=== PATIENT | male | born 1940 | race Two or more races ===

== ENCOUNTER 2016-12-12 06:45 | Inpatient (IN) | payer MEDICARE, BC ==
[~2016-12-12] VITALS: Ht 170.2 cm; Wt 69.9 kg
[2016-12-12] VITALS (22 sets, daily range): BP systolic 98–157; BP diastolic 63–97
[2016-12-12] MEDS ORDERED: NALOXONE PREFILLED SYRINGE 2 MG/2 ML SYRINGE ONE (06:50)
[2016-12-12] MEDS ORDERED: IV NS 0.9% 1,000 ML ONE (06:54)
[2016-12-12] MEDS ORDERED: IV SET PRIMARY PUMP SET 1 EA INFUS.SET MC ONE ×4 (06:54→10:41)
[2016-12-12] MEDS ORDERED: PROPOFOL 100 ML IV ONE (06:54)
[2016-12-12] MEDS ORDERED: IPRATROPIUM NEB FS 0.5 MG/2.5 ML AMPUL.NEB ONE (06:55)
[2016-12-12] MEDS ORDERED: ALBUTEROL FS 2.5 MG/3 ML VIAL.NEB ONE ×2 (06:55→07:18)
[2016-12-12] MEDS ORDERED: methylPREDNISolone SOD SUCC 125 MG/2ML VIAL ONE (06:56)
[2016-12-12] MEDS ORDERED: Magnesium 1GM/D5W 100ML PREMIX 100 ML IV SCH (07:00)
[2016-12-12] MEDS ORDERED: ALBUTEROL FS 2.5 MG/0.5 ML VIAL.NEB NEB ONE ×2 (07:00→07:30)
[2016-12-12] MEDS ORDERED: methylPREDNISolone SOD SUCC 125 MG/2ML VIAL IV ONE (07:00)
[2016-12-12] MEDS ORDERED: NALOXONE HCL 0.4 MG/ML AMPUL IV ONE (07:00)
[2016-12-12] MEDS ORDERED: IPRATROPIUM NEB FS 0.5 MG/2.5 ML AMPUL.NEB NEB ONE (07:00)
[2016-12-12] MEDS ORDERED: Magnesium 1GM/D5W 100ML PREMIX 200 ML IV ONE (07:07)
[2016-12-12 07:22] LABS: BASOPHILS # (AUTO) 0.2 /CMM (0.0-0.2); BASOPHILS % (AUTO) 2.2 % (0.0-2.0); DIFF TOTAL % 100 %; EOSINOPHILS % (AUTO) 0.1 % (0.0-6.0); HEMATOCRIT 52 % (39-51); HEMOGLOBIN 17.3 g/dL (13.5-17.5); LYMPHOCYTES # (AUTO) 0.7 /CMM (0.8-4.8); LYMPHOCYTES % (AUTO) 6.1 % (20.0-44.0); MEAN CORPUSCULAR HEMOGLOBIN 34 PG (26.0-33.0); MEAN CORPUSCULAR HGB CONC 33 g/dl (31.0-36.0); MEAN CORPUSCULAR VOLUME 103 fL (80-96); MONOCYTES # (AUTO) 1.1 /CMM (0.1-1.30); NEUTROPHILS # (AUTO) 9.1 /CMM (1.8-8.9); NEUTROPHILS % (AUTO) 81.6 % (43.0-81.0); PLATELET COUNT (AUTO) 160 /CMM (150-450); RED BLOOD CELL COUNT(AUTO) 5.07 MIL/uL (4.5-6.0); WHITE BLOOD COUNT (AUTO) 11.1 K/uL (4.3-11.0)
[2016-12-12] MEDS ORDERED: PROPOFOL 100 ML IV PRN (07:30)
[2016-12-12] MEDS ORDERED: SUCCINYLCHOLINE CHLORIDE 20 MG/ML VIAL IV ONE ×3 (07:30→13:00)
[2016-12-12] MEDS ORDERED: TERBUTALINE SULFATE 1 MG/ML VIAL SQ ONE (07:30)
[2016-12-12] MEDS ORDERED: IV NS 0.9% 1,000 ML BAG IV ONE (07:30)
[2016-12-12] MEDS ORDERED: ETOMIDATE 2 MG/ML VIAL IV ONE ×3 (07:30→13:00)
[2016-12-12] MEDS ORDERED: FENTANYL CITRATE IV 1,250 MCG in IV NS 0.9% 225 ML IV STA (07:32)
[2016-12-12 07:35] LABS: ANION GAP 10 (5-14); CALCIUM, SERUM 9.5 mg/dL (8.5-10.1); CARBON DIOXIDE 35 mmol/L (21-32); CHLORIDE 100 mmol/L (98-107); CREATININE 1.9 mg/dL (0.6-1.3); GLUCOSE 127 mg/dL (74-106); POTASSIUM 5.4 mmol/L (3.5-5.1); SODIUM SERUM 140 mmol/L (136-145); UREA NITROGEN, BLOOD 34 mg/dL (7-18)
[2016-12-12 07:36] LABS: INR 1.05 (0.87-1.13)
[2016-12-12 07:44] LABS: TROPONIN I 0.176 ng/mL (0.00-0.056)
[2016-12-12 07:52] LABS: ALANINE AMINOTRANSFERASE 46 U/L (12-78); ALBUMIN 3.6 g/dL (3.4-5.0); ASPARTATE AMINOTRANSFERASE 51 U/L (15-37); BILIRUBIN,DIRECT 0.4 mg/dL (0.0-0.2); BILIRUBIN,TOTAL 1.4 mg/dL (0.2-1.0); TOTAL PROTEIN, SERUM 7.8 g/dL (6.4-8.2)
[2016-12-12] MEDS ORDERED: TERBUTALINE SULFATE 1 MG/ML VIAL ONE (07:55)
[2016-12-12] MEDS ORDERED: FENTANYL PF 100MCG/2ML AMPUL IV ONE (08:00)
[2016-12-12] MEDS ORDERED: FENTANYL PF 100MCG/2ML AMPUL ONE (08:13)
[2016-12-12] MEDS ORDERED: SET PCA INFUSE SET 1 EA INFUS.SET MC ONE (08:15)
[2016-12-12 08:18] LABS: *LACTIC ACID REFLEX FLAG YES
[2016-12-12 08:29] LABS: KETONES,URINE Negative (NEGATIVE); LEUKOCYTE ESTERASE ,URINE Negative (NEGATIVE)
[2016-12-12] MEDS ORDERED: ASPIRIN 300 MG/SUPP.RECT RC ONE ×2 (08:30→09:50)
[2016-12-12 08:31] LABS: ADD UA MICROSCOPIC YES
[2016-12-12 08:45] LABS: ADD URINE CULTURE YES; RBC,URINE 0-2 /HPF (0-2); WBC,URINE NONE SEEN /HPF (0-3)
[2016-12-12] MEDS ORDERED: LEVOFLOXACIN 750 MG /D5W 150ML 150 ML IV ONE (08:48)
[2016-12-12] MEDS ORDERED: LEVOFLOXACIN 750 MG /D5W 150ML PIGGYBACK IV ONE (09:00)
[2016-12-12] MEDS ORDERED: IV NS 0.9% 1,000 ML IV PRN (09:10)
[2016-12-12] MEDS ORDERED: MAGNESIUM HYDROXIDE 30 ML UDC PO PRN (09:30)
[2016-12-12] MEDS ORDERED: ONDANSETRON HCL/PF 4 MG/2 ML VIAL IVP PRN (09:30)
[2016-12-12] MEDS ORDERED: MAG HYDROX/AL HYDROX/SIMETH 30 ML UDC PO PRN (09:30)
[2016-12-12] MEDS ORDERED: DEXTROSE 50%-WATER 50 ML DISP.SYRIN IV PRN (09:30)
[2016-12-12 09:39] LABS: BAND % (MANUAL) 9 % (0.0-5.0); LYMPHOCYTES % (MANUAL) 7 % (16-48)
[2016-12-12 09:40] LABS: PLATELET ESTIMATE ADEQUATE
[2016-12-12 09:51] LABS: ABG BASE EXCESS 3.8 mmol/L; ABG HCO3 40.3 mmol/L; ABG PCO2 139.2 mmHg (35.0-45.0); ABG PH 7.079 (7.350-7.450); ABG PO2 75.9 mmHg (75.0-100.0); ABG TOTAL HEMOGLOBIN 17.4 G/dL (13.5-18.0); ALLEN TEST Pass; O2Hb 87.8 % (94.0-97.0)
[2016-12-12 09:56] LABS: ABG BASE EXCESS 4.5 mmol/L; ABG HCO3 30.6 mmol/L; ABG PCO2 50.6 mmHg (35.0-45.0); ABG PH 7.399 (7.350-7.450); ABG PO2 158.9 mmHg (75.0-100.0); ABG TOTAL HEMOGLOBIN 15.9 G/dL (13.5-18.0); ALLEN TEST Pass; AaDO2 503.5 mmHg; O2Hb 96.8 % (94.0-97.0)
[2016-12-12] MEDS: PANTOPRAZOLE 40 MG VIAL IV SCH (10:50)
[2016-12-12] MEDS: IV NS 0.9% 1,000 ML IV PRN ×2 (10:51→18:56)
[2016-12-12] MEDS: ENOXAPARIN SODIUM 40 MG/0.4 ML DISP.SYRIN SQ SCH (10:54)
[2016-12-12] MEDS: IPRATROPIUM NEB FS 0.5 MG/2.5 ML AMPUL.NEB NEB SCH ×4 (11:22→23:24)
[2016-12-12] MEDS: BLOOD SUGAR DIAGNOSTIC 1 EACH STRIP VI SCH ×3 (12:20→22:23)
[2016-12-12] MEDS: methylPREDNISolone SOD SUCC 125 MG/2ML VIAL IV SCH ×2 (12:21→17:25)
[2016-12-12] MEDS: INSULIN REGULAR, HUMAN 100 UNIT/ML 3 ML VIAL SQ PRN ×2 (12:27→17:31)
[2016-12-12] MEDS: PROPOFOL 100 ML IV PRN ×2 (12:42→19:27)
[2016-12-12] MEDS ORDERED: ALBUTEROL HALF STRENGTH 1.25 MG/3 ML VIAL.NEB NEB SCH (13:00)
[2016-12-12] MEDS ORDERED: FENTANYL CITRATE IV 1,250 MCG in IV NS 0.9% 225 ML IV PRN (13:00)
[2016-12-12] MEDS: ALBUTEROL HALF STRENGTH 1.25 MG/3 ML VIAL.NEB NEB SCH ×3 (15:15→23:24)
[2016-12-12] MEDS ORDERED: ZOLPIDEM TARTRATE 5 MG TABLET PO PRN (22:00)
[2016-12-12] MEDS: MORPHINE SULFATE INJ 2 MG/ML DISP.SYRIN IV PRN (23:39)
[2016-12-13] VITALS (37 sets, daily range): BP systolic 108–173; BP diastolic 70–123
[2016-12-13] MEDS ORDERED: hydrALAZINE HCL IV 20 MG VIAL ONE (00:43)
[2016-12-13] MEDS: hydrALAZINE HCL IV 20 MG VIAL IV PRN (00:46)
[2016-12-13] MEDS: PROPOFOL 100 ML IV PRN ×5 (00:53→19:21)
[2016-12-13] MEDS: IV NS 0.9% 1,000 ML IV PRN ×3 (02:47→22:13)
[2016-12-13] MEDS: ALBUTEROL HALF STRENGTH 1.25 MG/3 ML VIAL.NEB NEB SCH ×6 (03:12→23:43)
[2016-12-13] MEDS: IPRATROPIUM NEB FS 0.5 MG/2.5 ML AMPUL.NEB NEB SCH ×6 (03:12→23:43)
[2016-12-13 04:56] LABS: DIFF TOTAL % 100 %; HEMATOCRIT 43 % (39-51); HEMOGLOBIN 14.3 g/dL (13.5-17.5); LYMPHOCYTES # (AUTO) 0.2 /CMM (0.8-4.8); MEAN CORPUSCULAR HEMOGLOBIN 34 PG (26.0-33.0); MEAN CORPUSCULAR HGB CONC 33 g/dl (31.0-36.0); MEAN CORPUSCULAR VOLUME 102 fL (80-96); MONOCYTES # (AUTO) 0.4 /CMM (0.1-1.30); MONOCYTES % (AUTO) 3.8 % (2.0-12.0); NEUTROPHILS # (AUTO) 9.7 /CMM (1.8-8.9); NEUTROPHILS % (AUTO) 94.2 % (43.0-81.0); PLATELET COUNT (AUTO) 171 /CMM (150-450); RED BLOOD CELL COUNT(AUTO) 4.24 MIL/uL (4.5-6.0); WHITE BLOOD COUNT (AUTO) 10.3 K/uL (4.3-11.0)
[2016-12-13 05:18] LABS: ALBUMIN 2.5 g/dL (3.4-5.0); BILIRUBIN,TOTAL 0.6 mg/dL (0.2-1.0); CREATININE 2.1 mg/dL (0.6-1.3); PHOSPHORUS 2.1 mg/dL (2.5-4.9); POTASSIUM 4.5 mmol/L (3.5-5.1); TOTAL PROTEIN, SERUM 5.9 g/dL (6.4-8.2)
[2016-12-13] MEDS: BLOOD SUGAR DIAGNOSTIC 1 EACH STRIP VI SCH ×4 (07:52→22:21)
[2016-12-13] MEDS: methylPREDNISolone SOD SUCC 125 MG/2ML VIAL IV SCH ×3 (08:18→16:34)
[2016-12-13] MEDS: PANTOPRAZOLE 40 MG VIAL IV SCH (08:18)
[2016-12-13 08:23] LABS: ABG BASE EXCESS 3.5 mmol/L; ABG HCO3 28.3 mmol/L; ABG PCO2 43.3 mmHg (35.0-45.0); ABG PH 7.433 (7.350-7.450); ABG PO2 71.6 mmHg (75.0-100.0); ABG TOTAL HEMOGLOBIN 14.9 G/dL (13.5-18.0); ALLEN TEST Pass; AaDO2 163.8 mmHg; O2Hb 93.3 % (94.0-97.0)
[2016-12-13] MEDS: ENOXAPARIN SODIUM 40 MG/0.4 ML DISP.SYRIN SQ SCH (08:52)
[2016-12-13] MEDS ORDERED: LEVOFLOXACIN 750 MG /D5W 150ML 750 MG in PREMIX 1 EA IV SCH ×3 (09:30→10:30)
[2016-12-13 10:41] LABS: CREATININE, URINE 175.3 MG/DL (30.0-125.0)
[2016-12-13] MEDS: INSULIN REGULAR, HUMAN 100 UNIT/ML 3 ML VIAL SQ PRN ×2 (12:01→16:33)
[2016-12-13] MEDS ORDERED: IV SET PRIMARY PUMP SET 1 EA INFUS.SET MC ONE (15:20)
[2016-12-13] MEDS ORDERED: Sodium Phosphate 7.5 MMOL in IV D5W 100 ML IV ONE (16:30)
[2016-12-13] MEDS: *INSULIN REGULAR(HUMULIN R)HUM 100 UNIT/ML VIAL SQ PRN (22:24)
[2016-12-14] VITALS (49 sets, daily range): BP systolic 100–173; BP diastolic 56–105
[2016-12-14] MEDS: PROPOFOL 100 ML IV PRN ×6 (00:14→20:56)
[2016-12-14] MEDS: IPRATROPIUM NEB FS 0.5 MG/2.5 ML AMPUL.NEB NEB SCH ×6 (03:54→23:06)
[2016-12-14] MEDS: ALBUTEROL HALF STRENGTH 1.25 MG/3 ML VIAL.NEB NEB SCH ×6 (03:54→23:05)
[2016-12-14] MEDS: hydrALAZINE HCL IV 20 MG VIAL IV PRN (04:02)
[2016-12-14 05:07] LABS: DIFF TOTAL % 100 %; EOSINOPHILS % (AUTO) 0.2 % (0.0-6.0); HEMATOCRIT 48 % (39-51); LYMPHOCYTES # (AUTO) 0.4 /CMM (0.8-4.8); LYMPHOCYTES % (AUTO) 2.9 % (20.0-44.0); MEAN CORPUSCULAR HEMOGLOBIN 34 PG (26.0-33.0); MEAN CORPUSCULAR HGB CONC 33 g/dl (31.0-36.0); MEAN CORPUSCULAR VOLUME 103 fL (80-96); MONOCYTES # (AUTO) 0.1 /CMM (0.1-1.30); MONOCYTES % (AUTO) 0.8 % (2.0-12.0); NEUTROPHILS # (AUTO) 13.2 /CMM (1.8-8.9); NEUTROPHILS % (AUTO) 96.1 % (43.0-81.0); PLATELET COUNT (AUTO) 188 /CMM (150-450); RED BLOOD CELL COUNT(AUTO) 4.68 MIL/uL (4.5-6.0); WHITE BLOOD COUNT (AUTO) 13.8 K/uL (4.3-11.0)
[2016-12-14 05:15] LABS: CALCIUM, SERUM 8.2 mg/dL (8.5-10.1); CREATININE 1.8 mg/dL (0.6-1.3); PHOSPHORUS 2.8 mg/dL (2.5-4.9); POTASSIUM 4.5 mmol/L (3.5-5.1)
[2016-12-14] MEDS: BLOOD SUGAR DIAGNOSTIC 1 EACH STRIP VI SCH ×4 (08:29→22:45)
[2016-12-14] MEDS: PANTOPRAZOLE 40 MG VIAL IV SCH (08:30)
[2016-12-14] MEDS: methylPREDNISolone SOD SUCC 125 MG/2ML VIAL IV SCH ×3 (08:30→17:44)
[2016-12-14] MEDS: IV NS 0.9% 1,000 ML IV PRN ×2 (08:30→17:44)
[2016-12-14] MEDS: ENOXAPARIN SODIUM 40 MG/0.4 ML DISP.SYRIN SQ SCH (08:31)
[2016-12-14] MEDS ORDERED: HYDROGEL DRESSING 90 GM TUBE TP PRN (09:30)
[2016-12-14] MEDS: HYDROGEL DRESSING 90 GM TUBE TP SCH (11:09)
[2016-12-14] MEDS ORDERED: IV SET PRIMARY PUMP SET 1 EA INFUS.SET MC ONE ×2 (13:17→20:37)
[2016-12-14] MEDS ORDERED: VANCOMYCIN 1 GM in IV D5W 250 ML IV SCH (15:00)
[2016-12-14] MEDS ORDERED: HYDR-548 PO (15:04)
[2016-12-14] MEDS ORDERED: ALBU18HF2 IH (15:04)
[2016-12-14] MEDS ORDERED: ALPR1TAB2 PO (15:04)
[2016-12-14] MEDS ORDERED: HYDR25TA4 PO (15:04)
[2016-12-14] MEDS ORDERED: BUDE10.2 IH (15:04)
[2016-12-14] MEDS ORDERED: TADA5TAB2 PO (15:04)
[2016-12-14] MEDS ORDERED: TIOT4MIS2 IH (15:04)
[2016-12-14] MEDS ORDERED: ALBU8.5H2 IH (15:04)
[2016-12-14] MEDS ORDERED: DEXT20TA6 PO (15:04)
[2016-12-14] MEDS ORDERED: FLUR30CA13 PO (15:04)
[2016-12-14] MEDS ORDERED: FEE PK DOSING 1 MIN EA MC ONE (16:08)
[2016-12-14] MEDS: VANCOMYCIN 0.75 GM in IV D5W 250 ML IV SCH (17:45)
[2016-12-14] MEDS: *INSULIN REGULAR(HUMULIN R)HUM 100 UNIT/ML VIAL SQ PRN ×2 (19:13→22:47)
[2016-12-14] MEDS ORDERED: SECONDARY IV SET 1 EA INFUS.SET MC ONE (21:10)
[2016-12-14] MEDS: PIPERACILLIN /TAZOBACTAM 2.25 G in IV D5W 50 ML IV SCH (22:48)
[2016-12-15] VITALS (54 sets, daily range): BP systolic 83–193; BP diastolic 54–99
[2016-12-15] MEDS: PROPOFOL 100 ML IV PRN ×5 (01:42→20:37)
[2016-12-15] MEDS: IPRATROPIUM NEB FS 0.5 MG/2.5 ML AMPUL.NEB NEB SCH ×6 (03:15→23:19)
[2016-12-15] MEDS: ALBUTEROL HALF STRENGTH 1.25 MG/3 ML VIAL.NEB NEB SCH ×6 (03:15→23:19)
[2016-12-15] MEDS: hydrALAZINE HCL IV 20 MG VIAL IV PRN (04:40)
[2016-12-15 05:26] LABS: CALCIUM, SERUM 7.6 mg/dL (8.5-10.1); CREATININE 1.6 mg/dL (0.6-1.3); POTASSIUM 4.8 mmol/L (3.5-5.1)
[2016-12-15 05:27] LABS: BASOPHILS % (AUTO) 0.3 % (0.0-2.0); DIFF TOTAL % 100 %; HEMATOCRIT 46 % (39-51); HEMOGLOBIN 15.3 g/dL (13.5-17.5); LYMPHOCYTES # (AUTO) 0.4 /CMM (0.8-4.8); LYMPHOCYTES % (AUTO) 4.1 % (20.0-44.0); MEAN CORPUSCULAR HEMOGLOBIN 34 PG (26.0-33.0); MEAN CORPUSCULAR HGB CONC 33 g/dl (31.0-36.0); MEAN CORPUSCULAR VOLUME 103 fL (80-96); MONOCYTES # (AUTO) 0.3 /CMM (0.1-1.30); MONOCYTES % (AUTO) 3.3 % (2.0-12.0); NEUTROPHILS # (AUTO) 9.6 /CMM (1.8-8.9); NEUTROPHILS % (AUTO) 92.3 % (43.0-81.0); PLATELET COUNT (AUTO) 167 /CMM (150-450); RED BLOOD CELL COUNT(AUTO) 4.49 MIL/uL (4.5-6.0); WHITE BLOOD COUNT (AUTO) 10.4 K/uL (4.3-11.0)
[2016-12-15] MEDS: PIPERACILLIN /TAZOBACTAM 2.25 G in IV D5W 50 ML IV SCH ×3 (05:49→17:44)
[2016-12-15] MEDS: BLOOD SUGAR DIAGNOSTIC 1 EACH STRIP VI SCH ×4 (08:19→21:15)
[2016-12-15] MEDS: PANTOPRAZOLE 40 MG VIAL IV SCH (08:20)
[2016-12-15] MEDS: methylPREDNISolone SOD SUCC 125 MG/2ML VIAL IV SCH ×2 (08:21→17:44)
[2016-12-15] MEDS: ENOXAPARIN SODIUM 40 MG/0.4 ML DISP.SYRIN SQ SCH (08:21)
[2016-12-15] MEDS: HYDROGEL DRESSING 90 GM TUBE TP SCH (08:22)
[2016-12-15] MEDS: Z GUARD REMEDY 2 OZ OINT TP PRN (08:22)
[2016-12-15] MEDS ORDERED: LEVOFLOXACIN 750 MG /D5W 150ML 750 MG in PREMIX 1 EA IV SCH (09:00)
[2016-12-15] MEDS ORDERED: IV SET PRIMARY PUMP SET 1 EA INFUS.SET MC ONE ×2 (09:27→20:42)
[2016-12-15] MEDS: VANCOMYCIN 0.75 GM in IV D5W 250 ML IV SCH (10:20)
[2016-12-15] MEDS: IV NS 0.9% 1,000 ML IV PRN (10:20)
[2016-12-15 11:44] LABS: ABG HCO3 26.7 mmol/L; ABG PCO2 67.9 mmHg (35.0-45.0); ABG PH 7.212 (7.350-7.450); ABG PO2 79.5 mmHg (75.0-100.0); ABG TOTAL HEMOGLOBIN 16.2 G/dL (13.5-18.0); ALLEN TEST Pass; AaDO2 127.6 mmHg; O2Hb 91.3 % (94.0-97.0)
[2016-12-15] MEDS: INSULIN REGULAR, HUMAN 100 UNIT/ML 3 ML VIAL SQ PRN (11:47)
[2016-12-15] MEDS: LORAZEPAM INJ 2 MG/ML VIAL IV PRN ×2 (12:01→20:37)
[2016-12-15 17:53] LABS: HIV-1 p24 ANTIGEN NON REACTIVE (NONREACTIVE); HIV-1/2 ANTIBODY NON REACTIVE (NONREACTIVE)
[2016-12-15] MEDS: *INSULIN REGULAR(HUMULIN R)HUM 100 UNIT/ML VIAL SQ PRN (21:15)
[2016-12-16] VITALS (50 sets, daily range): BP systolic 99–177; BP diastolic 7–98
[2016-12-16] MEDS: PIPERACILLIN /TAZOBACTAM 2.25 G in IV D5W 50 ML IV SCH ×5 (00:30→23:01)
[2016-12-16] MEDS: MORPHINE SULFATE INJ 2 MG/ML DISP.SYRIN IV PRN (01:36)
[2016-12-16] MEDS: PROPOFOL 100 ML IV PRN ×6 (01:37→22:58)
[2016-12-16] MEDS: IV NS 0.9% 1,000 ML IV PRN ×2 (01:38→16:27)
[2016-12-16] MEDS: ALBUTEROL HALF STRENGTH 1.25 MG/3 ML VIAL.NEB NEB SCH ×6 (03:24→22:47)
[2016-12-16] MEDS: IPRATROPIUM NEB FS 0.5 MG/2.5 ML AMPUL.NEB NEB SCH ×6 (03:24→22:47)
[2016-12-16] MEDS: LORAZEPAM INJ 2 MG/ML VIAL IV PRN (03:51)
[2016-12-16 05:03] LABS: BASOPHILS % (AUTO) 0.2 % (0.0-2.0); DIFF TOTAL % 100 %; EOSINOPHILS % (AUTO) 0.2 % (0.0-6.0); HEMATOCRIT 50 % (39-51); HEMOGLOBIN 15.7 g/dL (13.5-17.5); LYMPHOCYTES # (AUTO) 0.3 /CMM (0.8-4.8); LYMPHOCYTES % (AUTO) 4.1 % (20.0-44.0); MEAN CORPUSCULAR HEMOGLOBIN 33 PG (26.0-33.0); MEAN CORPUSCULAR HGB CONC 32 g/dl (31.0-36.0); MEAN CORPUSCULAR VOLUME 103 fL (80-96); MONOCYTES # (AUTO) 0.5 /CMM (0.1-1.30); MONOCYTES % (AUTO) 5.7 % (2.0-12.0); NEUTROPHILS # (AUTO) 7.3 /CMM (1.8-8.9); NEUTROPHILS % (AUTO) 89.8 % (43.0-81.0); PLATELET COUNT (AUTO) 172 /CMM (150-450); RED BLOOD CELL COUNT(AUTO) 4.81 MIL/uL (4.5-6.0); WHITE BLOOD COUNT (AUTO) 8.1 K/uL (4.3-11.0)
[2016-12-16 05:15] LABS: CALCIUM, SERUM 7.7 mg/dL (8.5-10.1); CREATININE 1.6 mg/dL (0.6-1.3); POTASSIUM 4.8 mmol/L (3.5-5.1)
[2016-12-16] MEDS ORDERED: DEXTROSE 50%-WATER 50 ML DISP.SYRIN IV PRN (07:30)
[2016-12-16] MEDS: PANTOPRAZOLE 40 MG VIAL IV SCH (08:30)
[2016-12-16] MEDS: ENOXAPARIN SODIUM 40 MG/0.4 ML DISP.SYRIN SQ SCH (08:31)
[2016-12-16] MEDS: methylPREDNISolone SOD SUCC 125 MG/2ML VIAL IV SCH ×2 (08:31→16:27)
[2016-12-16] MEDS: HYDROGEL DRESSING 90 GM TUBE TP SCH (08:32)
[2016-12-16] MEDS ORDERED: IV SET PRIMARY PUMP SET 1 EA INFUS.SET MC ONE ×3 (09:46→19:42)
[2016-12-16] MEDS: BLOOD SUGAR DIAGNOSTIC 1 EACH STRIP IN SCH ×3 (11:33→23:02)
[2016-12-16] MEDS ORDERED: BLOOD SUGAR DIAGNOSTIC 1 EACH STRIP IN SCH (12:00)
[2016-12-16] MEDS: GLYTROL 1,000 ML BAG GT PRN (12:42)
[2016-12-16] MEDS: INSULIN REGULAR, HUMAN 100 UNIT/ML 3 ML VIAL SQ PRN ×2 (18:03→23:10)
[2016-12-17] VITALS (59 sets, daily range): BP systolic 114–185; BP diastolic 59–105
[2016-12-17] MEDS: IPRATROPIUM NEB FS 0.5 MG/2.5 ML AMPUL.NEB NEB SCH ×6 (02:36→23:21)
[2016-12-17] MEDS: ALBUTEROL HALF STRENGTH 1.25 MG/3 ML VIAL.NEB NEB SCH ×6 (02:36→23:20)
[2016-12-17] MEDS: PROPOFOL 100 ML IV PRN ×5 (03:09→23:48)
[2016-12-17 05:02] LABS: BASOPHILS % (AUTO) 0.1 % (0.0-2.0); DIFF TOTAL % 100 %; HEMATOCRIT 44 % (39-51); HEMOGLOBIN 14.2 g/dL (13.5-17.5); LYMPHOCYTES # (AUTO) 0.4 /CMM (0.8-4.8); LYMPHOCYTES % (AUTO) 5.6 % (20.0-44.0); MEAN CORPUSCULAR HEMOGLOBIN 33 PG (26.0-33.0); MEAN CORPUSCULAR HGB CONC 33 g/dl (31.0-36.0); MEAN CORPUSCULAR VOLUME 102 fL (80-96); MONOCYTES # (AUTO) 0.4 /CMM (0.1-1.30); MONOCYTES % (AUTO) 6.1 % (2.0-12.0); NEUTROPHILS # (AUTO) 6.5 /CMM (1.8-8.9); NEUTROPHILS % (AUTO) 88.2 % (43.0-81.0); PLATELET COUNT (AUTO) 187 /CMM (150-450); RED BLOOD CELL COUNT(AUTO) 4.27 MIL/uL (4.5-6.0); WHITE BLOOD COUNT (AUTO) 7.3 K/uL (4.3-11.0)
[2016-12-17 05:13] LABS: CALCIUM, SERUM 7.3 mg/dL (8.5-10.1); CREATININE 1.5 mg/dL (0.6-1.3); POTASSIUM 4.5 mmol/L (3.5-5.1)
[2016-12-17] MEDS: PIPERACILLIN /TAZOBACTAM 2.25 G in IV D5W 50 ML IV SCH ×3 (05:34→18:21)
[2016-12-17] MEDS: IV NS 0.9% 1,000 ML IV PRN ×2 (05:35→18:21)
[2016-12-17] MEDS: BLOOD SUGAR DIAGNOSTIC 1 EACH STRIP IN SCH ×4 (05:35→23:55)
[2016-12-17] MEDS: INSULIN REGULAR, HUMAN 100 UNIT/ML 3 ML VIAL SQ PRN ×2 (05:36→23:56)
[2016-12-17] MEDS ORDERED: IV SET PRIMARY PUMP SET 1 EA INFUS.SET MC ONE (07:58)
[2016-12-17] MEDS: methylPREDNISolone SOD SUCC 125 MG/2ML VIAL IV SCH ×2 (08:02→09:00)
[2016-12-17] MEDS: PANTOPRAZOLE 40 MG VIAL IV SCH (08:02)
[2016-12-17] MEDS: HYDROGEL DRESSING 90 GM TUBE TP SCH (08:03)
[2016-12-17] MEDS: ENOXAPARIN SODIUM 40 MG/0.4 ML DISP.SYRIN SQ SCH (08:04)
[2016-12-17] MEDS: LORAZEPAM INJ 2 MG/ML VIAL IV PRN ×2 (09:17→16:23)
[2016-12-17] MEDS: GLYTROL 1,000 ML BAG GT PRN (13:00)
[2016-12-17] MEDS: MORPHINE SULFATE INJ 2 MG/ML DISP.SYRIN IV PRN (15:00)
[2016-12-18] VITALS (46 sets, daily range): BP systolic 105–175; BP diastolic 60–84
[2016-12-18] MEDS: PIPERACILLIN /TAZOBACTAM 2.25 G in IV D5W 50 ML IV SCH ×2 (00:04→05:51)
[2016-12-18] MEDS: IPRATROPIUM NEB FS 0.5 MG/2.5 ML AMPUL.NEB NEB SCH ×5 (03:13→20:10)
[2016-12-18] MEDS: ALBUTEROL HALF STRENGTH 1.25 MG/3 ML VIAL.NEB NEB SCH ×5 (03:47→20:10)
[2016-12-18] MEDS: PROPOFOL 100 ML IV PRN ×6 (04:12→23:49)
[2016-12-18 04:47] LABS: CREATININE 1.3 mg/dL (0.6-1.3); POTASSIUM 4.5 mmol/L (3.5-5.1)
[2016-12-18] MEDS ORDERED: IV D5W 0 ML IV ONE (04:57)
[2016-12-18] MEDS ORDERED: PIPERACILLIN /TAZOBACTAM 2.25 G VIAL IV ONE (04:57)
[2016-12-18 04:59] LABS: BASOPHILS % (AUTO) 0.1 % (0.0-2.0); DIFF TOTAL % 100 %; EOSINOPHILS % (AUTO) 0.3 % (0.0-6.0); HEMATOCRIT 44 % (39-51); HEMOGLOBIN 14.2 g/dL (13.5-17.5); LYMPHOCYTES # (AUTO) 0.6 /CMM (0.8-4.8); LYMPHOCYTES % (AUTO) 7.9 % (20.0-44.0); MEAN CORPUSCULAR HEMOGLOBIN 33 PG (26.0-33.0); MEAN CORPUSCULAR HGB CONC 32 g/dl (31.0-36.0); MEAN CORPUSCULAR VOLUME 102 fL (80-96); MONOCYTES # (AUTO) 0.4 /CMM (0.1-1.30); MONOCYTES % (AUTO) 5.3 % (2.0-12.0); NEUTROPHILS # (AUTO) 6.6 /CMM (1.8-8.9); NEUTROPHILS % (AUTO) 86.4 % (43.0-81.0); PLATELET COUNT (AUTO) 197 /CMM (150-450); RED BLOOD CELL COUNT(AUTO) 4.28 MIL/uL (4.5-6.0); WHITE BLOOD COUNT (AUTO) 7.7 K/uL (4.3-11.0)
[2016-12-18] MEDS: BLOOD SUGAR DIAGNOSTIC 1 EACH STRIP IN SCH ×4 (05:59→23:06)
[2016-12-18] MEDS ORDERED: IV SET PRIMARY PUMP SET 1 EA INFUS.SET MC ONE ×2 (08:17→22:55)
[2016-12-18] MEDS: IV NS 0.9% 1,000 ML IV PRN (08:34)
[2016-12-18] MEDS: PANTOPRAZOLE 40 MG VIAL IV SCH (08:34)
[2016-12-18] MEDS: methylPREDNISolone SOD SUCC 125 MG/2ML VIAL IV SCH (08:35)
[2016-12-18] MEDS: GLYTROL 1,000 ML BAG GT PRN ×2 (08:35→23:03)
[2016-12-18] MEDS: HYDROGEL DRESSING 90 GM TUBE TP SCH (08:36)
[2016-12-18] MEDS: ENOXAPARIN SODIUM 40 MG/0.4 ML DISP.SYRIN SQ SCH (08:55)
[2016-12-18] MEDS: PIPERACILLIN /TAZOBACTAM 3.375 G in IV D5W 50 ML IV SCH ×3 (11:16→23:07)
[2016-12-18] MEDS: INSULIN REGULAR, HUMAN 100 UNIT/ML 3 ML VIAL SQ PRN ×2 (11:25→17:15)
[2016-12-18] MEDS: MORPHINE SULFATE INJ 2 MG/ML DISP.SYRIN IV PRN ×2 (11:47→16:55)
[2016-12-18] MEDS: IV 1/2NS 1000 ML 1,000 ML IV PRN ×2 (11:57→23:04)
[2016-12-18] MEDS: LORAZEPAM INJ 2 MG/ML VIAL IV PRN (14:31)
[2016-12-18] MEDS: hydrALAZINE HCL IV 20 MG VIAL IV PRN (15:58)
[2016-12-19] VITALS (61 sets, daily range): BP systolic 94–172; BP diastolic 49–95
[2016-12-19] MEDS: ALBUTEROL HALF STRENGTH 1.25 MG/3 ML VIAL.NEB NEB SCH ×7 (00:09→23:54)
[2016-12-19] MEDS: IPRATROPIUM NEB FS 0.5 MG/2.5 ML AMPUL.NEB NEB SCH ×7 (00:09→23:54)
[2016-12-19] MEDS: PROPOFOL 100 ML IV PRN ×6 (03:37→22:28)
[2016-12-19 05:27] LABS: CALCIUM, SERUM 8.2 mg/dL (8.5-10.1); CREATININE 1.2 mg/dL (0.6-1.3); POTASSIUM 4.6 mmol/L (3.5-5.1)
[2016-12-19] MEDS: BLOOD SUGAR DIAGNOSTIC 1 EACH STRIP IN SCH ×4 (06:17→23:50)
[2016-12-19] MEDS: PIPERACILLIN /TAZOBACTAM 3.375 G in IV D5W 50 ML IV SCH ×4 (06:18→23:50)
[2016-12-19] MEDS: HYDROGEL DRESSING 90 GM TUBE TP SCH (08:23)
[2016-12-19] MEDS: ENOXAPARIN SODIUM 40 MG/0.4 ML DISP.SYRIN SQ SCH (08:25)
[2016-12-19] MEDS: PANTOPRAZOLE 40 MG VIAL IV SCH (08:25)
[2016-12-19] MEDS: methylPREDNISolone SOD SUCC 125 MG/2ML VIAL IV SCH (08:25)
[2016-12-19] MEDS: IV 1/2NS 1000 ML 1,000 ML IV PRN ×2 (08:26→11:54)
[2016-12-19] MEDS ORDERED: DC PROPOFOL WHEN EXTUBATED XX PRN (09:00)
[2016-12-19 09:34] LABS: ABG BASE EXCESS 0.5 mmol/L; ABG HCO3 27.5 mmol/L; ABG PCO2 52.8 mmHg (35.0-45.0); ABG PH 7.334 (7.350-7.450); ABG PO2 75.1 mmHg (75.0-100.0); ABG TOTAL HEMOGLOBIN 16.1 G/dL (13.5-18.0); ALLEN TEST Pass; AaDO2 149.4 mmHg
[2016-12-19] MEDS ORDERED: IV SET PRIMARY PUMP SET 1 EA INFUS.SET MC ONE ×2 (10:32→21:57)
[2016-12-19] MEDS ORDERED: PROPOFOL 100 ML IV PRN (11:00)
[2016-12-19] MEDS: LORAZEPAM INJ 2 MG/ML VIAL IV PRN (12:25)
[2016-12-19] MEDS ORDERED: ETOMIDATE 2 MG/ML VIAL IV ONE (15:20)
[2016-12-19] MEDS ORDERED: FEE EMEERGENCY 1 MIN EA MC ONE (15:20)
[2016-12-19] MEDS ORDERED: SUCCINYLCHOLINE CHLORIDE 20 MG/ML VIAL IV ONE (15:20)
[2016-12-20] VITALS (58 sets, daily range): BP systolic 95–164; BP diastolic 49–80
[2016-12-20] MEDS: PROPOFOL 100 ML IV PRN ×8 (01:20→23:38)
[2016-12-20] MEDS: IV 1/2NS 1000 ML 1,000 ML IV PRN ×3 (02:57→21:25)
[2016-12-20] MEDS: ALBUTEROL HALF STRENGTH 1.25 MG/3 ML VIAL.NEB NEB SCH ×6 (03:18→23:37)
[2016-12-20] MEDS: IPRATROPIUM NEB FS 0.5 MG/2.5 ML AMPUL.NEB NEB SCH ×6 (03:18→23:37)
[2016-12-20 04:57] LABS: BASOPHILS % (AUTO) 0.1 % (0.0-2.0); DIFF TOTAL % 100 %; EOSINOPHILS # (AUTO) 0.1 /CMM (0.0-0.7); EOSINOPHILS % (AUTO) 0.7 % (0.0-6.0); HEMATOCRIT 45 % (39-51); HEMOGLOBIN 14.6 g/dL (13.5-17.5); LYMPHOCYTES # (AUTO) 1.1 /CMM (0.8-4.8); LYMPHOCYTES % (AUTO) 13.1 % (20.0-44.0); MEAN CORPUSCULAR HEMOGLOBIN 33 PG (26.0-33.0); MEAN CORPUSCULAR HGB CONC 33 g/dl (31.0-36.0); MEAN CORPUSCULAR VOLUME 101 fL (80-96); MONOCYTES # (AUTO) 0.3 /CMM (0.1-1.30); NEUTROPHILS % (AUTO) 83.1 % (43.0-81.0); PLATELET COUNT (AUTO) 227 /CMM (150-450); RED BLOOD CELL COUNT(AUTO) 4.44 MIL/uL (4.5-6.0); WHITE BLOOD COUNT (AUTO) 8.4 K/uL (4.3-11.0)
[2016-12-20 05:15] LABS: CALCIUM, SERUM 8.5 mg/dL (8.5-10.1); CREATININE 1.2 mg/dL (0.6-1.3); POTASSIUM 4.5 mmol/L (3.5-5.1)
[2016-12-20] MEDS: BLOOD SUGAR DIAGNOSTIC 1 EACH STRIP IN SCH ×4 (05:25→23:57)
[2016-12-20] MEDS: PIPERACILLIN /TAZOBACTAM 3.375 G in IV D5W 50 ML IV SCH ×4 (05:27→23:57)
[2016-12-20] MEDS: PANTOPRAZOLE 40 MG VIAL IV SCH (07:54)
[2016-12-20] MEDS: methylPREDNISolone SOD SUCC 125 MG/2ML VIAL IV SCH (07:54)
[2016-12-20] MEDS: HYDROGEL DRESSING 90 GM TUBE TP SCH (07:55)
[2016-12-20] MEDS: ENOXAPARIN SODIUM 40 MG/0.4 ML DISP.SYRIN SQ SCH (07:55)
[2016-12-20] MEDS: GLYTROL 1,000 ML BAG GT PRN (07:56)
[2016-12-20 08:09] LABS: *RAPID PLASMA REAGIN QUAL Non Reactive (Non Reactive)
[2016-12-20 09:00] LABS: ABG BASE EXCESS 0.6 mmol/L; ABG HCO3 25.4 mmol/L; ABG PCO2 41.4 mmHg (35.0-45.0); ABG PH 7.406 (7.350-7.450); ABG PO2 88.5 mmHg (75.0-100.0); ABG TOTAL HEMOGLOBIN 14.8 G/dL (13.5-18.0); AaDO2 149.1 mmHg; O2Hb 94.3 % (94.0-97.0)
[2016-12-20] MEDS: LORAZEPAM INJ 2 MG/ML VIAL IV PRN (11:09)
[2016-12-20] MEDS: MORPHINE SULFATE INJ 2 MG/ML DISP.SYRIN IV PRN (11:12)
[2016-12-21] VITALS (53 sets, daily range): BP systolic 92–174; BP diastolic 48–87
[2016-12-21] MEDS: PROPOFOL 100 ML IV PRN ×7 (01:45→23:00)
[2016-12-21] MEDS: IPRATROPIUM NEB FS 0.5 MG/2.5 ML AMPUL.NEB NEB SCH ×6 (03:29→23:20)
[2016-12-21] MEDS: ALBUTEROL HALF STRENGTH 1.25 MG/3 ML VIAL.NEB NEB SCH ×6 (03:29→23:20)
[2016-12-21] MEDS: GLYTROL 1,000 ML BAG GT PRN ×2 (03:38→16:41)
[2016-12-21 04:44] LABS: BASOPHILS % (AUTO) 0.3 % (0.0-2.0); DIFF TOTAL % 100 %; EOSINOPHILS # (AUTO) 0.1 /CMM (0.0-0.7); EOSINOPHILS % (AUTO) 1.1 % (0.0-6.0); HEMATOCRIT 45 % (39-51); HEMOGLOBIN 14.6 g/dL (13.5-17.5); LYMPHOCYTES # (AUTO) 1.3 /CMM (0.8-4.8); LYMPHOCYTES % (AUTO) 13.8 % (20.0-44.0); MEAN CORPUSCULAR HEMOGLOBIN 33 PG (26.0-33.0); MEAN CORPUSCULAR HGB CONC 33 g/dl (31.0-36.0); MEAN CORPUSCULAR VOLUME 100 fL (80-96); MONOCYTES # (AUTO) 0.4 /CMM (0.1-1.30); MONOCYTES % (AUTO) 4.7 % (2.0-12.0); NEUTROPHILS # (AUTO) 7.5 /CMM (1.8-8.9); NEUTROPHILS % (AUTO) 80.1 % (43.0-81.0); PLATELET COUNT (AUTO) 245 /CMM (150-450); RED BLOOD CELL COUNT(AUTO) 4.45 MIL/uL (4.5-6.0); WHITE BLOOD COUNT (AUTO) 9.4 K/uL (4.3-11.0)
[2016-12-21] MEDS: BLOOD SUGAR DIAGNOSTIC 1 EACH STRIP IN SCH ×4 (05:32→23:50)
[2016-12-21] MEDS: PIPERACILLIN /TAZOBACTAM 3.375 G in IV D5W 50 ML IV SCH (05:32)
[2016-12-21 05:33] LABS: CALCIUM, SERUM 8.1 mg/dL (8.5-10.1); CREATININE 1.4 mg/dL (0.6-1.3); POTASSIUM 4.5 mmol/L (3.5-5.1)
[2016-12-21] MEDS: Z GUARD REMEDY 2 OZ OINT TP PRN (08:19)
[2016-12-21] MEDS: PANTOPRAZOLE 40 MG VIAL IV SCH (08:19)
[2016-12-21] MEDS: methylPREDNISolone SOD SUCC 125 MG/2ML VIAL IV SCH (08:19)
[2016-12-21] MEDS: HYDROGEL DRESSING 90 GM TUBE TP SCH (08:19)
[2016-12-21] MEDS: ENOXAPARIN SODIUM 40 MG/0.4 ML DISP.SYRIN SQ SCH (08:20)
[2016-12-21] MEDS ORDERED: LEVOFLOXACIN (500MG) 500 MG TABLET PO SCH (10:00)
[2016-12-21] MEDS ORDERED: IV SET PRIMARY PUMP SET 1 EA INFUS.SET MC ONE ×3 (10:07→23:21)
[2016-12-21] MEDS: LORAZEPAM INJ 2 MG/ML VIAL IV PRN ×3 (10:33→23:47)
[2016-12-21] MEDS: IV 1/2NS 1000 ML 1,000 ML IV PRN (16:41)
[2016-12-22] VITALS (40 sets, daily range): BP systolic 96–183; BP diastolic 52–100
[2016-12-22] MEDS: PROPOFOL 100 ML IV PRN ×6 (02:28→23:50)
[2016-12-22] MEDS: IPRATROPIUM NEB FS 0.5 MG/2.5 ML AMPUL.NEB NEB SCH ×6 (03:17→23:12)
[2016-12-22] MEDS: ALBUTEROL HALF STRENGTH 1.25 MG/3 ML VIAL.NEB NEB SCH ×6 (03:17→23:12)
[2016-12-22 05:18] LABS: BASOPHILS % (AUTO) 0.1 % (0.0-2.0); DIFF TOTAL % 100 %; EOSINOPHILS # (AUTO) 0.1 /CMM (0.0-0.7); EOSINOPHILS % (AUTO) 0.5 % (0.0-6.0); HEMATOCRIT 46 % (39-51); HEMOGLOBIN 14.8 g/dL (13.5-17.5); LYMPHOCYTES # (AUTO) 1.5 /CMM (0.8-4.8); LYMPHOCYTES % (AUTO) 13.6 % (20.0-44.0); MEAN CORPUSCULAR HEMOGLOBIN 33 PG (26.0-33.0); MEAN CORPUSCULAR HGB CONC 32 g/dl (31.0-36.0); MEAN CORPUSCULAR VOLUME 101 fL (80-96); MONOCYTES # (AUTO) 0.7 /CMM (0.1-1.30); MONOCYTES % (AUTO) 6.1 % (2.0-12.0); NEUTROPHILS # (AUTO) 9.1 /CMM (1.8-8.9); NEUTROPHILS % (AUTO) 79.7 % (43.0-81.0); PLATELET COUNT (AUTO) 282 /CMM (150-450); RED BLOOD CELL COUNT(AUTO) 4.55 MIL/uL (4.5-6.0); WHITE BLOOD COUNT (AUTO) 11.4 K/uL (4.3-11.0)
[2016-12-22 05:37] LABS: CALCIUM, SERUM 8.6 mg/dL (8.5-10.1); CREATININE 1.5 mg/dL (0.6-1.3); POTASSIUM 5.2 mmol/L (3.5-5.1)
[2016-12-22] MEDS: BLOOD SUGAR DIAGNOSTIC 1 EACH STRIP IN SCH ×4 (06:09→23:53)
[2016-12-22] MEDS ORDERED: PROPOFOL 100 ML IV ONE (06:37)
[2016-12-22] MEDS: PANTOPRAZOLE 40 MG VIAL IV SCH (08:13)
[2016-12-22] MEDS: methylPREDNISolone SOD SUCC 125 MG/2ML VIAL IV SCH ×2 (08:13→17:09)
[2016-12-22] MEDS: ENOXAPARIN SODIUM 40 MG/0.4 ML DISP.SYRIN SQ SCH (08:15)
[2016-12-22] MEDS: HYDROGEL DRESSING 90 GM TUBE TP SCH (08:16)
[2016-12-22] MEDS: GLYTROL 1,000 ML BAG GT PRN (09:31)
[2016-12-22] MEDS: LEVOFLOXACIN (250MG) 250 MG TABLET GT SCH (09:31)
[2016-12-22] MEDS ORDERED: IV SET PRIMARY PUMP SET 1 EA INFUS.SET MC ONE ×2 (11:15→21:19)
[2016-12-22] MEDS: MORPHINE SULFATE INJ 2 MG/ML DISP.SYRIN IV PRN ×2 (11:28→20:14)
[2016-12-22] MEDS: IV 1/2NS 1000 ML 1,000 ML IV PRN (13:22)
[2016-12-22] MEDS: LORAZEPAM INJ 2 MG/ML VIAL IV PRN (14:58)
[2016-12-23] VITALS (36 sets, daily range): BP systolic 120–180; BP diastolic 41–110
[2016-12-23] MEDS: GLYTROL 1,000 ML BAG GT PRN ×2 (02:22→19:01)
[2016-12-23] MEDS: PROPOFOL 100 ML IV PRN ×5 (02:51→22:01)
[2016-12-23] MEDS: ALBUTEROL HALF STRENGTH 1.25 MG/3 ML VIAL.NEB NEB SCH ×6 (03:07→23:34)
[2016-12-23] MEDS: IPRATROPIUM NEB FS 0.5 MG/2.5 ML AMPUL.NEB NEB SCH ×6 (03:07→23:34)
[2016-12-23] MEDS ORDERED: AMIODARONE 150 MG in IV D5W 100 ML IV ONE (03:30)
[2016-12-23] MEDS ORDERED: AMIODARONE 900 MG in IV D5W 482 ML IV PRN (03:30)
[2016-12-23 04:56] LABS: BASOPHILS % (AUTO) 0.1 % (0.0-2.0); DIFF TOTAL % 100 %; EOSINOPHILS % (AUTO) 0.3 % (0.0-6.0); HEMATOCRIT 47 % (39-51); HEMOGLOBIN 15.2 g/dL (13.5-17.5); LYMPHOCYTES # (AUTO) 0.9 /CMM (0.8-4.8); LYMPHOCYTES % (AUTO) 6.3 % (20.0-44.0); MEAN CORPUSCULAR HEMOGLOBIN 33 PG (26.0-33.0); MEAN CORPUSCULAR HGB CONC 33 g/dl (31.0-36.0); MEAN CORPUSCULAR VOLUME 100 fL (80-96); MONOCYTES # (AUTO) 0.8 /CMM (0.1-1.30); MONOCYTES % (AUTO) 5.5 % (2.0-12.0); NEUTROPHILS % (AUTO) 87.8 % (43.0-81.0); PLATELET COUNT (AUTO) 266 /CMM (150-450); RED BLOOD CELL COUNT(AUTO) 4.66 MIL/uL (4.5-6.0); WHITE BLOOD COUNT (AUTO) 13.7 K/uL (4.3-11.0)
[2016-12-23 05:03] LABS: CALCIUM, SERUM 8.8 mg/dL (8.5-10.1); CREATININE 1.3 mg/dL (0.6-1.3); POTASSIUM 5.1 mmol/L (3.5-5.1)
[2016-12-23] MEDS: BLOOD SUGAR DIAGNOSTIC 1 EACH STRIP IN SCH ×3 (05:28→17:08)
[2016-12-23] MEDS ORDERED: IV SET PRIMARY PUMP SET 1 EA INFUS.SET MC ONE ×2 (07:03→20:13)
[2016-12-23] MEDS: PANTOPRAZOLE 40 MG VIAL IV SCH (08:00)
[2016-12-23] MEDS: methylPREDNISolone SOD SUCC 125 MG/2ML VIAL IV SCH ×2 (08:00→17:08)
[2016-12-23] MEDS: ENOXAPARIN SODIUM 40 MG/0.4 ML DISP.SYRIN SQ SCH (08:01)
[2016-12-23] MEDS: HYDROGEL DRESSING 90 GM TUBE TP SCH (08:01)
[2016-12-23] MEDS ORDERED: BISACODYL SUPP (10 MG) 10 MG/SUPP.RECT SUPP.RECT RC PRN (09:00)
[2016-12-23] MEDS: IV 1/2NS 1000 ML 1,000 ML IV PRN (09:15)
[2016-12-23] MEDS: LEVOFLOXACIN (250MG) 250 MG TABLET GT SCH (09:15)
[2016-12-23] MEDS: NYSTATIN (PYXIS) 500,000 UNIT/5 ML ORAL.SUSP PO SCH ×3 (09:32→17:08)
[2016-12-23] MEDS: LORAZEPAM INJ 2 MG/ML VIAL IV PRN ×2 (10:12→20:22)
[2016-12-23] MEDS: MORPHINE SULFATE INJ 2 MG/ML DISP.SYRIN IV PRN ×2 (13:38→20:22)
[2016-12-24] VITALS (35 sets, daily range): BP systolic 79–190; BP diastolic 34–112
[2016-12-24] MEDS: INSULIN REGULAR, HUMAN 100 UNIT/ML 3 ML VIAL SQ PRN ×2 (00:38→04:35)
[2016-12-24] MEDS: MORPHINE SULFATE INJ 2 MG/ML DISP.SYRIN IV PRN (00:52)
[2016-12-24] MEDS: PROPOFOL 100 ML IV PRN ×2 (01:59→04:34)
[2016-12-24] MEDS: IPRATROPIUM NEB FS 0.5 MG/2.5 ML AMPUL.NEB NEB SCH ×5 (03:25→19:31)
[2016-12-24] MEDS: ALBUTEROL HALF STRENGTH 1.25 MG/3 ML VIAL.NEB NEB SCH ×6 (03:25→23:30)
[2016-12-24 05:15] LABS: BASOPHILS % (AUTO) 0.1 % (0.0-2.0); DIFF TOTAL % 100 %; HEMATOCRIT 40 % (39-51); HEMOGLOBIN 13.3 g/dL (13.5-17.5); LYMPHOCYTES # (AUTO) 0.8 /CMM (0.8-4.8); LYMPHOCYTES % (AUTO) 6.5 % (20.0-44.0); MEAN CORPUSCULAR HEMOGLOBIN 33 PG (26.0-33.0); MEAN CORPUSCULAR HGB CONC 34 g/dl (31.0-36.0); MEAN CORPUSCULAR VOLUME 99 fL (80-96); MONOCYTES # (AUTO) 0.7 /CMM (0.1-1.30); MONOCYTES % (AUTO) 5.4 % (2.0-12.0); NEUTROPHILS # (AUTO) 10.8 /CMM (1.8-8.9); PLATELET COUNT (AUTO) 280 /CMM (150-450); RED BLOOD CELL COUNT(AUTO) 3.99 MIL/uL (4.5-6.0); WHITE BLOOD COUNT (AUTO) 12.2 K/uL (4.3-11.0)
[2016-12-24] MEDS: IV 1/2NS 1000 ML 1,000 ML IV PRN (05:22)
[2016-12-24] MEDS: BLOOD SUGAR DIAGNOSTIC 1 EACH STRIP IN SCH ×4 (05:22→17:39)
[2016-12-24 05:23] LABS: CALCIUM, SERUM 8.5 mg/dL (8.5-10.1); CREATININE 1.1 mg/dL (0.6-1.3); POTASSIUM 4.4 mmol/L (3.5-5.1)
[2016-12-24] MEDS ORDERED: IV SET PRIMARY PUMP SET 1 EA INFUS.SET MC ONE (08:20)
[2016-12-24] MEDS ORDERED: DC PROPOFOL WHEN EXTUBATED XX PRN (09:00)
[2016-12-24] MEDS: PANTOPRAZOLE 40 MG VIAL IV SCH (09:06)
[2016-12-24] MEDS: LEVOFLOXACIN (250MG) 250 MG TABLET GT SCH (09:06)
[2016-12-24] MEDS: NYSTATIN (PYXIS) 500,000 UNIT/5 ML ORAL.SUSP PO SCH ×3 (09:06→17:40)
[2016-12-24] MEDS: methylPREDNISolone SOD SUCC 125 MG/2ML VIAL IV SCH ×2 (09:06→17:40)
[2016-12-24] MEDS: ENOXAPARIN SODIUM 40 MG/0.4 ML DISP.SYRIN SQ SCH (09:06)
[2016-12-24] MEDS: HYDROGEL DRESSING 90 GM TUBE TP SCH (09:07)
[2016-12-24] MEDS: GLYTROL 1,000 ML BAG GT PRN (09:14)
[2016-12-24 10:20] LABS: ABG BASE EXCESS 1.7 mmol/L; ABG HCO3 27.5 mmol/L; ABG PCO2 47.3 mmHg (35.0-45.0); ABG PH 7.382 (7.350-7.450); ABG PO2 90.1 mmHg (75.0-100.0); ABG TOTAL HEMOGLOBIN 14.7 G/dL (13.5-18.0); ALLEN TEST Pass; AaDO2 140.7 mmHg; O2Hb 94.8 % (94.0-97.0)
[2016-12-24 11:36] LABS: ABG HCO3 28.8 mmol/L; ABG PCO2 58.7 mmHg (35.0-45.0); ABG PH 7.308 (7.350-7.450); ABG PO2 85.9 mmHg (75.0-100.0); ALLEN TEST Pass; AaDO2 102.7 mmHg; O2Hb 93.7 % (94.0-97.0)
[2016-12-24 15:38] LABS: ABG BASE EXCESS -1.3 mmol/L; ABG HCO3 24.7 mmol/L; ABG PCO2 45.9 mmHg (35.0-45.0); ABG PH 7.348 (7.350-7.450); ABG PO2 77.9 mmHg (75.0-100.0); ABG TOTAL HEMOGLOBIN 15.6 G/dL (13.5-18.0); ALLEN TEST Pass; AaDO2 125.5 mmHg
[2016-12-24] MEDS ORDERED: VANCOMYCIN 1 GM in IV D5W 250 ML IV SCH (20:00)
[2016-12-24] MEDS ORDERED: SECONDARY IV SET 1 EA INFUS.SET MC ONE (20:45)
[2016-12-25] VITALS (45 sets, daily range): BP systolic 90–203; BP diastolic 54–124
[2016-12-25] MEDS: IPRATROPIUM NEB FS 0.5 MG/2.5 ML AMPUL.NEB NEB SCH ×7 (00:03→23:30)
[2016-12-25] MEDS: BLOOD SUGAR DIAGNOSTIC 1 EACH STRIP IN SCH ×5 (01:25→23:53)
[2016-12-25] MEDS: IV 1/2NS 1000 ML 1,000 ML IV PRN ×2 (01:26→21:53)
[2016-12-25] MEDS: LORAZEPAM INJ 2 MG/ML VIAL IV PRN (02:55)
[2016-12-25 03:18] LABS: ABG BASE EXCESS 1.3 mmol/L; ABG HCO3 29.4 mmol/L; ABG PCO2 60.1 mmHg (35.0-45.0); ABG PH 7.307 (7.350-7.450); ABG PO2 105.9 mmHg (75.0-100.0); ABG TOTAL HEMOGLOBIN 16.6 G/dL (13.5-18.0); ALLEN TEST Pass
[2016-12-25] MEDS: ALBUTEROL HALF STRENGTH 1.25 MG/3 ML VIAL.NEB NEB SCH ×6 (03:30→23:30)
[2016-12-25 05:07] LABS: BASOPHILS % (AUTO) 0.1 % (0.0-2.0); DIFF TOTAL % 100 %; EOSINOPHILS # (AUTO) 0.1 /CMM (0.0-0.7); EOSINOPHILS % (AUTO) 0.4 % (0.0-6.0); HEMATOCRIT 50 % (39-51); HEMOGLOBIN 16.9 g/dL (13.5-17.5); LYMPHOCYTES % (AUTO) 6.4 % (20.0-44.0); MEAN CORPUSCULAR HEMOGLOBIN 34 PG (26.0-33.0); MEAN CORPUSCULAR HGB CONC 34 g/dl (31.0-36.0); MEAN CORPUSCULAR VOLUME 100 fL (80-96); MONOCYTES # (AUTO) 0.8 /CMM (0.1-1.30); MONOCYTES % (AUTO) 5.3 % (2.0-12.0); NEUTROPHILS # (AUTO) 13.9 /CMM (1.8-8.9); NEUTROPHILS % (AUTO) 87.8 % (43.0-81.0); PLATELET COUNT (AUTO) 326 /CMM (150-450); RED BLOOD CELL COUNT(AUTO) 5.04 MIL/uL (4.5-6.0); WHITE BLOOD COUNT (AUTO) 15.9 K/uL (4.3-11.0)
[2016-12-25] MEDS ORDERED: IV D5W 100 ML IV ONE (05:08)
[2016-12-25] MEDS ORDERED: AMIODARONE 150 MG/3 ML VIAL IV ONE ×3 (05:08→05:12)
[2016-12-25] MEDS ORDERED: IV SET PRIMARY PUMP SET 1 EA INFUS.SET MC ONE ×2 (05:08→15:23)
[2016-12-25] MEDS ORDERED: IV D5W 500 ML IV ONE (05:13)
[2016-12-25 05:23] LABS: CALCIUM, SERUM 9.5 mg/dL (8.5-10.1); CREATININE 1.2 mg/dL (0.6-1.3); POTASSIUM 4.8 mmol/L (3.5-5.1)
[2016-12-25] MEDS ORDERED: AMIODARONE 150 MG in IV D5W 100 ML IV ONE (05:30)
[2016-12-25] MEDS ORDERED: AMIODARONE 900 MG in IV D5W 482 ML IV PRN (05:30)
[2016-12-25] MEDS: VANCOMYCIN HCL 0.75 GM in IV D5W 250 ML IV SCH ×2 (07:45→21:48)
[2016-12-25] MEDS: NYSTATIN (PYXIS) 500,000 UNIT/5 ML ORAL.SUSP PO SCH ×3 (08:04→16:19)
[2016-12-25] MEDS: PANTOPRAZOLE 40 MG VIAL IV SCH (08:04)
[2016-12-25] MEDS: HYDROGEL DRESSING 90 GM TUBE TP SCH (08:04)
[2016-12-25] MEDS: methylPREDNISolone SOD SUCC 125 MG/2ML VIAL IV SCH ×2 (08:04→16:19)
[2016-12-25] MEDS: ENOXAPARIN SODIUM 40 MG/0.4 ML DISP.SYRIN SQ SCH (08:06)
[2016-12-25 09:50] LABS: ABG HCO3 27.9 mmol/L; ABG PH 7.339 (7.350-7.450); ABG PO2 70.1 mmHg (75.0-100.0); ABG TOTAL HEMOGLOBIN 15.9 G/dL (13.5-18.0); ALLEN TEST Pass; AaDO2 154.2 mmHg
[2016-12-25 10:15] LABS: KETONES,URINE NEGATIVE (NEGATIVE); LEUKOCYTE ESTERASE ,URINE NEGATIVE (NEGATIVE); PH,URINE 5.5 (5.0-8.0)
[2016-12-25 10:16] LABS: ADD UA MICROSCOPIC YES
[2016-12-25 10:21] LABS: ADD URINE CULTURE NO; MUCUS,URINE Few /LPF (None Seen)
[2016-12-25] MEDS: hydrALAZINE HCL IV 20 MG VIAL IV PRN (14:16)
[2016-12-25 15:09] LABS: ABG BASE EXCESS 0.9 mmol/L; ABG HCO3 27.5 mmol/L; ABG PCO2 50.9 mmHg (35.0-45.0); ABG PH 7.351 (7.350-7.450); ABG PO2 67.6 mmHg (75.0-100.0); ABG TOTAL HEMOGLOBIN 16.5 G/dL (13.5-18.0); ALLEN TEST Pass; AaDO2 159.1 mmHg
[2016-12-25] MEDS: PROPOFOL 100 ML IV PRN ×4 (15:52→23:52)
[2016-12-25 16:47] LABS: ABG BASE EXCESS 2.3 mmol/L; ABG HCO3 27.6 mmol/L; ABG PCO2 44.9 mmHg (35.0-45.0); ABG PH 7.406 (7.350-7.450); ABG PO2 71.5 mmHg (75.0-100.0); ALLEN TEST Pass; AaDO2 162.1 mmHg; O2Hb 91.8 % (94.0-97.0)
[2016-12-25] MEDS ORDERED: ETOMIDATE 2 MG/ML VIAL IV ONE (18:00)
[2016-12-25] MEDS ORDERED: SUCCINYLCHOLINE CHLORIDE 20 MG/ML VIAL IV ONE (18:00)
[2016-12-25] MEDS ORDERED: FIBERSOURCE HN 1,000 ML BOTTLE GT PRN (18:30)
[2016-12-25] MEDS: GLYTROL 1,000 ML BAG GT PRN (18:37)
[2016-12-25 20:31] LABS: SUBTYPE NOVEL H1N1 PCR Negative (Negative); TYPE INFLUENZA A PCR Negative (Negative)
[2016-12-25] MEDS: INSULIN REGULAR, HUMAN 100 UNIT/ML 3 ML VIAL SQ PRN (23:54)
[2016-12-26] VITALS (47 sets, daily range): BP systolic 84–150; BP diastolic 51–82
[2016-12-26] MEDS: PROPOFOL 100 ML IV PRN ×5 (03:32→23:59)
[2016-12-26] MEDS: ALBUTEROL HALF STRENGTH 1.25 MG/3 ML VIAL.NEB NEB SCH ×6 (03:37→23:46)
[2016-12-26] MEDS: IPRATROPIUM NEB FS 0.5 MG/2.5 ML AMPUL.NEB NEB SCH ×6 (03:37→23:46)
[2016-12-26 05:13] LABS: BASOPHILS % (AUTO) 0.1 % (0.0-2.0); DIFF TOTAL % 100 %; HEMATOCRIT 45 % (39-51); HEMOGLOBIN 14.8 g/dL (13.5-17.5); LYMPHOCYTES # (AUTO) 0.6 /CMM (0.8-4.8); LYMPHOCYTES % (AUTO) 5.2 % (20.0-44.0); MEAN CORPUSCULAR HEMOGLOBIN 33 PG (26.0-33.0); MEAN CORPUSCULAR HGB CONC 33 g/dl (31.0-36.0); MEAN CORPUSCULAR VOLUME 100 fL (80-96); MONOCYTES # (AUTO) 0.6 /CMM (0.1-1.30); MONOCYTES % (AUTO) 5.4 % (2.0-12.0); NEUTROPHILS # (AUTO) 10.5 /CMM (1.8-8.9); NEUTROPHILS % (AUTO) 89.3 % (43.0-81.0); PLATELET COUNT (AUTO) 311 /CMM (150-450); RED BLOOD CELL COUNT(AUTO) 4.46 MIL/uL (4.5-6.0); WHITE BLOOD COUNT (AUTO) 11.8 K/uL (4.3-11.0)
[2016-12-26 05:29] LABS: CALCIUM, SERUM 8.8 mg/dL (8.5-10.1); CREATININE 1.2 mg/dL (0.6-1.3); PHOSPHORUS 2.9 mg/dL (2.5-4.9); POTASSIUM 4.5 mmol/L (3.5-5.1)
[2016-12-26] MEDS: BLOOD SUGAR DIAGNOSTIC 1 EACH STRIP IN SCH ×4 (06:06→23:29)
[2016-12-26] MEDS: VANCOMYCIN HCL 0.75 GM in IV D5W 250 ML IV SCH ×2 (08:00→19:32)
[2016-12-26] MEDS: HYDROGEL DRESSING 90 GM TUBE TP SCH (08:01)
[2016-12-26] MEDS: NYSTATIN (PYXIS) 500,000 UNIT/5 ML ORAL.SUSP PO SCH ×3 (08:01→17:28)
[2016-12-26] MEDS: PANTOPRAZOLE 40 MG VIAL IV SCH (08:01)
[2016-12-26] MEDS: methylPREDNISolone SOD SUCC 125 MG/2ML VIAL IV SCH ×2 (08:01→17:28)
[2016-12-26] MEDS: ENOXAPARIN SODIUM 40 MG/0.4 ML DISP.SYRIN SQ SCH (08:03)
[2016-12-26] MEDS: Magnesium 1GM/D5W 100ML PREMIX 100 ML IV SCH ×2 (10:37→11:27)
[2016-12-26] MEDS: INSULIN REGULAR, HUMAN 100 UNIT/ML 3 ML VIAL SQ PRN (12:22)
[2016-12-26] MEDS ORDERED: IV SET PRIMARY PUMP SET 1 EA INFUS.SET MC ONE (13:11)
[2016-12-26] MEDS ORDERED: POLYVINYL ALCOHOL 15 ML BOTTLE EACHEYE PRN (14:00)
[2016-12-26] MEDS: LORAZEPAM INJ 2 MG/ML VIAL IV PRN ×2 (15:25→23:35)
[2016-12-26] MEDS: GLYTROL 1,000 ML BAG GT PRN (17:31)
[2016-12-26] MEDS: IV 1/2NS 1000 ML 1,000 ML IV PRN (19:32)
[2016-12-26] MEDS: MORPHINE SULFATE INJ 2 MG/ML DISP.SYRIN IV PRN (22:57)
[2016-12-27] VITALS (55 sets, daily range): BP systolic 86–187; BP diastolic 48–94
[2016-12-27] MEDS: hydrALAZINE HCL IV 20 MG VIAL IV PRN ×2 (01:04→17:14)
[2016-12-27] MEDS: ALBUTEROL HALF STRENGTH 1.25 MG/3 ML VIAL.NEB NEB SCH ×6 (03:40→23:30)
[2016-12-27] MEDS: IPRATROPIUM NEB FS 0.5 MG/2.5 ML AMPUL.NEB NEB SCH ×6 (03:41→23:30)
[2016-12-27] MEDS ORDERED: IV SET PRIMARY PUMP SET 1 EA INFUS.SET MC ONE ×2 (04:06→19:57)
[2016-12-27] MEDS: PROPOFOL 100 ML IV PRN ×3 (04:11→23:45)
[2016-12-27 04:58] LABS: CREATININE 1.2 mg/dL (0.6-1.3); POTASSIUM 4.3 mmol/L (3.5-5.1)
[2016-12-27 05:09] LABS: INR 0.99 (0.87-1.13); PROTHROMBIN TIME 10.7 SECS (9.5-12.7)
[2016-12-27] MEDS: BLOOD SUGAR DIAGNOSTIC 1 EACH STRIP IN SCH ×3 (05:40→17:11)
[2016-12-27] MEDS: LORAZEPAM INJ 2 MG/ML VIAL IV PRN ×4 (06:12→18:40)
[2016-12-27] MEDS: HYDROGEL DRESSING 90 GM TUBE TP SCH (08:31)
[2016-12-27] MEDS: PANTOPRAZOLE 40 MG VIAL IV SCH (08:32)
[2016-12-27] MEDS: NYSTATIN (PYXIS) 500,000 UNIT/5 ML ORAL.SUSP PO SCH ×3 (08:32→17:12)
[2016-12-27] MEDS: VANCOMYCIN HCL 0.75 GM in IV D5W 250 ML IV SCH ×2 (08:32→20:11)
[2016-12-27] MEDS: methylPREDNISolone SOD SUCC 125 MG/2ML VIAL IV SCH ×2 (08:33→17:12)
[2016-12-27] MEDS: ENOXAPARIN SODIUM 40 MG/0.4 ML DISP.SYRIN SQ SCH (08:38)
[2016-12-27] MEDS ORDERED: LIDOCAINE 1%-EPI 1:100,000 20 ML VIAL ONE (11:28)
[2016-12-27] MEDS ORDERED: FENTANYL PF 100MCG/2ML AMPUL ONE (12:20)
[2016-12-27] MEDS: IV 1/2NS 1000 ML 1,000 ML IV PRN (14:26)
[2016-12-27] MEDS: MORPHINE SULFATE INJ 2 MG/ML DISP.SYRIN IV PRN ×2 (14:27→18:41)
[2016-12-27] MEDS: GLYTROL 1,000 ML BAG GT PRN (19:06)
[2016-12-27] MEDS: INSULIN REGULAR, HUMAN 100 UNIT/ML 3 ML VIAL SQ PRN (23:41)
[2016-12-28] VITALS (53 sets, daily range): BP systolic 83–162; BP diastolic 44–86
[2016-12-28] MEDS: BLOOD SUGAR DIAGNOSTIC 1 EACH STRIP IN SCH ×4 (00:24→17:44)
[2016-12-28] MEDS ORDERED: AMIODARONE 150 MG/3 ML VIAL IV ONE (00:44)
[2016-12-28] MEDS ORDERED: IV D5W 0 ML IV ONE (00:45)
[2016-12-28] MEDS ORDERED: AMIODARONE 900 MG in IV D5W 482 ML IV PRN (01:00)
[2016-12-28] MEDS ORDERED: AMIODARONE 150 MG in IV D5W 100 ML IV ONE (01:00)
[2016-12-28] MEDS: ALBUTEROL HALF STRENGTH 1.25 MG/3 ML VIAL.NEB NEB SCH ×4 (03:02→19:56)
[2016-12-28] MEDS: IPRATROPIUM NEB FS 0.5 MG/2.5 ML AMPUL.NEB NEB SCH ×6 (03:02→23:31)
[2016-12-28] MEDS: PROPOFOL 100 ML IV PRN ×5 (04:45→23:03)
[2016-12-28 04:53] LABS: DIFF TOTAL % 100 %; EOSINOPHILS % (AUTO) 0.4 % (0.0-6.0); HEMATOCRIT 43 % (39-51); HEMOGLOBIN 14.3 g/dL (13.5-17.5); LYMPHOCYTES # (AUTO) 0.2 /CMM (0.8-4.8); LYMPHOCYTES % (AUTO) 1.6 % (20.0-44.0); MEAN CORPUSCULAR HEMOGLOBIN 33 PG (26.0-33.0); MEAN CORPUSCULAR HGB CONC 33 g/dl (31.0-36.0); MEAN CORPUSCULAR VOLUME 100 fL (80-96); MONOCYTES # (AUTO) 0.6 /CMM (0.1-1.30); MONOCYTES % (AUTO) 4.4 % (2.0-12.0); NEUTROPHILS # (AUTO) 12.5 /CMM (1.8-8.9); NEUTROPHILS % (AUTO) 93.6 % (43.0-81.0); PLATELET COUNT (AUTO) 280 /CMM (150-450); RED BLOOD CELL COUNT(AUTO) 4.34 MIL/uL (4.5-6.0); WHITE BLOOD COUNT (AUTO) 13.4 K/uL (4.3-11.0)
[2016-12-28 05:07] LABS: CALCIUM, SERUM 8.9 mg/dL (8.5-10.1); POTASSIUM 4.2 mmol/L (3.5-5.1)
[2016-12-28] MEDS: VANCOMYCIN HCL 0.75 GM in IV D5W 250 ML IV SCH ×2 (08:18→20:51)
[2016-12-28] MEDS: LORAZEPAM INJ 2 MG/ML VIAL IV PRN (08:27)
[2016-12-28] MEDS ORDERED: LORAZEPAM INJ 2 MG/ML VIAL IV ONE (08:50)
[2016-12-28] MEDS: PANTOPRAZOLE 40 MG VIAL IV SCH (09:01)
[2016-12-28] MEDS: HYDROGEL DRESSING 90 GM TUBE TP SCH (09:01)
[2016-12-28] MEDS: NYSTATIN (PYXIS) 500,000 UNIT/5 ML ORAL.SUSP PO SCH ×3 (09:01→16:34)
[2016-12-28] MEDS: methylPREDNISolone SOD SUCC 125 MG/2ML VIAL IV SCH ×2 (09:01→16:35)
[2016-12-28] MEDS ORDERED: IV SET PRIMARY PUMP SET 1 EA INFUS.SET MC ONE (09:29)
[2016-12-28] MEDS: INSULIN REGULAR, HUMAN 100 UNIT/ML 3 ML VIAL SQ PRN ×2 (11:46→17:40)
[2016-12-28] MEDS: ENOXAPARIN SODIUM 40 MG/0.4 ML DISP.SYRIN SQ SCH (14:41)
[2016-12-28] MEDS ORDERED: IV NS 0.9% 250 ML IV ONE (15:00)
[2016-12-28] MEDS: LORAZEPAM INJ 2 MG/ML VIAL IV SCH (16:35)
[2016-12-28] MEDS: GLYTROL 1,000 ML BAG GT PRN (18:36)
[2016-12-28] MEDS ORDERED: IV NS 0.9% 500 ML BAG IV ONE (23:30)
[2016-12-29] VITALS (33 sets, daily range): BP systolic 15–171; BP diastolic 55–88
[2016-12-29] MEDS: ALBUTEROL HALF STRENGTH 1.25 MG/3 ML VIAL.NEB NEB SCH ×4 (00:56→19:46)
[2016-12-29] MEDS: BLOOD SUGAR DIAGNOSTIC 1 EACH STRIP IN SCH ×4 (01:08→17:41)
[2016-12-29] MEDS: PROPOFOL 100 ML IV PRN ×2 (03:24→08:52)
[2016-12-29] MEDS: IPRATROPIUM NEB FS 0.5 MG/2.5 ML AMPUL.NEB NEB SCH ×5 (03:45→19:46)
[2016-12-29 05:15] LABS: BASOPHILS % (AUTO) 0.2 % (0.0-2.0); DIFF TOTAL % 100 %; HEMATOCRIT 42 % (39-51); HEMOGLOBIN 13.9 g/dL (13.5-17.5); LYMPHOCYTES # (AUTO) 0.5 /CMM (0.8-4.8); LYMPHOCYTES % (AUTO) 4.7 % (20.0-44.0); MEAN CORPUSCULAR HEMOGLOBIN 33 PG (26.0-33.0); MEAN CORPUSCULAR HGB CONC 33 g/dl (31.0-36.0); MEAN CORPUSCULAR VOLUME 100 fL (80-96); MONOCYTES # (AUTO) 0.6 /CMM (0.1-1.30); MONOCYTES % (AUTO) 4.8 % (2.0-12.0); NEUTROPHILS # (AUTO) 10.4 /CMM (1.8-8.9); NEUTROPHILS % (AUTO) 90.3 % (43.0-81.0); PLATELET COUNT (AUTO) 234 /CMM (150-450); WHITE BLOOD COUNT (AUTO) 11.5 K/uL (4.3-11.0)
[2016-12-29 05:26] LABS: CALCIUM, SERUM 8.8 mg/dL (8.5-10.1); CREATININE 0.9 mg/dL (0.6-1.3); PHOSPHORUS 2.4 mg/dL (2.5-4.9); POTASSIUM 4.4 mmol/L (3.5-5.1)
[2016-12-29] MEDS: NYSTATIN (PYXIS) 500,000 UNIT/5 ML ORAL.SUSP PO SCH ×3 (08:35→17:40)
[2016-12-29] MEDS: LORAZEPAM INJ 2 MG/ML VIAL IV SCH ×2 (08:35→17:40)
[2016-12-29] MEDS: methylPREDNISolone SOD SUCC 125 MG/2ML VIAL IV SCH ×2 (08:35→17:40)
[2016-12-29] MEDS: PANTOPRAZOLE 40 MG VIAL IV SCH (08:35)
[2016-12-29] MEDS: VANCOMYCIN HCL 0.75 GM in IV D5W 250 ML IV SCH ×2 (08:35→20:21)
[2016-12-29] MEDS: ENOXAPARIN SODIUM 40 MG/0.4 ML DISP.SYRIN SQ SCH (08:36)
[2016-12-29] MEDS: HYDROGEL DRESSING 90 GM TUBE TP SCH (08:36)
[2016-12-29] MEDS ORDERED: ENOXAPARIN SODIUM 40 MG/0.4 ML DISP.SYRIN SQ SCH (09:00)
[2016-12-29] MEDS ORDERED: SECONDARY IV SET 1 EA INFUS.SET MC ONE (09:55)
[2016-12-29] MEDS: Magnesium 1GM/D5W 100ML PREMIX 100 ML IV SCH ×2 (09:56→11:38)
[2016-12-29] MEDS: INSULIN REGULAR, HUMAN 100 UNIT/ML 3 ML VIAL SQ PRN ×2 (12:05→17:49)
[2016-12-29] MEDS: GLYTROL 1,000 ML BAG GT PRN (15:21)
[2016-12-29] MEDS ORDERED: NEUTRA PHOS 1 POWD.PACKET GT ONE (16:00)
[2016-12-29] MEDS ORDERED: ZOLPIDEM TARTRATE 5 MG TABLET ONE (23:50)
[2016-12-30] VITALS: BP 167/89
[2016-12-30] MEDS ORDERED: ZOLPIDEM TARTRATE 5 MG TABLET GT ONE
[2016-12-30] MEDS: BLOOD SUGAR DIAGNOSTIC 1 EACH STRIP IN SCH ×4 (00:16→17:41)
[2016-12-30] MEDS: INSULIN REGULAR, HUMAN 100 UNIT/ML 3 ML VIAL SQ PRN ×4 (00:17→17:48)
[2016-12-30] MEDS: IPRATROPIUM NEB FS 0.5 MG/2.5 ML AMPUL.NEB NEB SCH ×4 (00:30→19:34)
[2016-12-30] MEDS: ALBUTEROL HALF STRENGTH 1.25 MG/3 ML VIAL.NEB NEB SCH ×4 (00:30→19:34)
[2016-12-30] MEDS ORDERED: LORAZEPAM INJ 2 MG/ML VIAL ONE (03:54)
[2016-12-30 04:00] VITALS: BP 165/87
[2016-12-30] MEDS ORDERED: LORAZEPAM INJ 2 MG/ML VIAL IV ONE (04:00)
[2016-12-30] MEDS: MORPHINE SULFATE INJ 2 MG/ML DISP.SYRIN IV PRN ×3 (04:54→20:39)
[2016-12-30] MEDS ORDERED: AMIODARONE 150 MG/3 ML VIAL IV ONE ×3 (05:13→05:22)
[2016-12-30] MEDS ORDERED: IV D5W 100 ML IV ONE (05:16)
[2016-12-30] MEDS ORDERED: SECONDARY IV SET 1 EA INFUS.SET MC ONE ×2 (05:19→14:49)
[2016-12-30] MEDS ORDERED: AMIODARONE 900 MG in IV D5W 482 ML IV PRN (05:30)
[2016-12-30] MEDS ORDERED: AMIODARONE 150 MG in IV D5W 100 ML IV ONE (05:30)
[2016-12-30] MEDS ORDERED: IV D5W 500 ML IV ONE (05:39)
[2016-12-30] MEDS ORDERED: IV SET PRIMARY PUMP SET 1 EA INFUS.SET MC ONE (05:49)
[2016-12-30 07:17] LABS: BASOPHILS % (AUTO) 0.1 % (0.0-2.0); DIFF TOTAL % 100 %; EOSINOPHILS % (AUTO) 0.1 % (0.0-6.0); HEMATOCRIT 43 % (39-51); HEMOGLOBIN 13.9 g/dL (13.5-17.5); LYMPHOCYTES # (AUTO) 0.4 /CMM (0.8-4.8); LYMPHOCYTES % (AUTO) 2.9 % (20.0-44.0); MEAN CORPUSCULAR HEMOGLOBIN 33 PG (26.0-33.0); MEAN CORPUSCULAR HGB CONC 33 g/dl (31.0-36.0); MEAN CORPUSCULAR VOLUME 100 fL (80-96); MONOCYTES # (AUTO) 0.8 /CMM (0.1-1.30); MONOCYTES % (AUTO) 6.2 % (2.0-12.0); NEUTROPHILS # (AUTO) 11.9 /CMM (1.8-8.9); NEUTROPHILS % (AUTO) 90.7 % (43.0-81.0); PLATELET COUNT (AUTO) 238 /CMM (150-450); RED BLOOD CELL COUNT(AUTO) 4.27 MIL/uL (4.5-6.0); WHITE BLOOD COUNT (AUTO) 13.1 K/uL (4.3-11.0)
[2016-12-30 07:36] LABS: CALCIUM, SERUM 8.7 mg/dL (8.5-10.1); CREATININE 0.9 mg/dL (0.6-1.3); PHOSPHORUS 2.3 mg/dL (2.5-4.9); POTASSIUM 4.5 mmol/L (3.5-5.1)
[2016-12-30 08:00] VITALS: BP 146/92
[2016-12-30] MEDS: VANCOMYCIN HCL 0.75 GM in IV D5W 250 ML IV SCH ×2 (08:29→20:38)
[2016-12-30] MEDS: methylPREDNISolone SOD SUCC 125 MG/2ML VIAL IV SCH ×2 (08:29→17:32)
[2016-12-30] MEDS: LORAZEPAM INJ 2 MG/ML VIAL IV SCH ×2 (08:29→17:32)
[2016-12-30] MEDS: PANTOPRAZOLE 40 MG VIAL IV SCH (08:29)
[2016-12-30] MEDS: NYSTATIN (PYXIS) 500,000 UNIT/5 ML ORAL.SUSP PO SCH ×3 (08:30→17:32)
[2016-12-30] MEDS: HYDROGEL DRESSING 90 GM TUBE TP SCH (08:34)
[2016-12-30] MEDS: ENOXAPARIN SODIUM 40 MG/0.4 ML DISP.SYRIN SQ SCH (08:46)
[2016-12-30] MEDS: Magnesium 1GM/D5W 100ML PREMIX 100 ML IV SCH ×2 (11:41→13:13)
[2016-12-30 12:00] VITALS: BP 157/78
[2016-12-30] MEDS ORDERED: POTASSIUM PHOSPHATE MM 15 MMOL in IV D5W 250 ML IV ONE (14:30)
[2016-12-30] MEDS: POTASSIUM PHOSPHATE MM 7.5 MMOL in IV D5W 100 ML IV SCH ×2 (14:53→17:55)
[2016-12-30 16:00] VITALS: BP 140/71
[2016-12-30 20:00] VITALS: BP 166/81
[2016-12-30] MEDS: GLYTROL 1,000 ML BAG GT PRN (20:52)
[2016-12-30] MEDS: hydrALAZINE HCL IV 20 MG VIAL IV PRN (22:44)
[2016-12-31] VITALS: BP 186/80
[2016-12-31] MEDS ORDERED: LORAZEPAM INJ 2 MG/ML VIAL ONE (00:06)
[2016-12-31] MEDS: MORPHINE SULFATE INJ 2 MG/ML DISP.SYRIN IV PRN (00:10)
[2016-12-31] MEDS: INSULIN REGULAR, HUMAN 100 UNIT/ML 3 ML VIAL SQ PRN ×4 (00:19→17:27)
[2016-12-31] MEDS: BLOOD SUGAR DIAGNOSTIC 1 EACH STRIP IN SCH ×4 (00:28→17:25)
[2016-12-31] MEDS ORDERED: LORAZEPAM INJ 2 MG/ML VIAL IV ONE (00:30)
[2016-12-31] MEDS: ALBUTEROL HALF STRENGTH 1.25 MG/3 ML VIAL.NEB NEB SCH ×4 (01:24→19:14)
[2016-12-31] MEDS: IPRATROPIUM NEB FS 0.5 MG/2.5 ML AMPUL.NEB NEB SCH ×4 (01:24→19:15)
[2016-12-31] MEDS ORDERED: IV NS 0.9% 250 ML IV ONE (03:35)
[2016-12-31 04:00] VITALS: BP 154/76
[2016-12-31 06:37] LABS: DIFF TOTAL % 100 %; HEMATOCRIT 43 % (39-51); HEMOGLOBIN 14.5 g/dL (13.5-17.5); LYMPHOCYTES # (AUTO) 0.3 /CMM (0.8-4.8); LYMPHOCYTES % (AUTO) 2.3 % (20.0-44.0); MEAN CORPUSCULAR HEMOGLOBIN 33 PG (26.0-33.0); MEAN CORPUSCULAR HGB CONC 34 g/dl (31.0-36.0); MEAN CORPUSCULAR VOLUME 99 fL (80-96); MONOCYTES # (AUTO) 0.8 /CMM (0.1-1.30); MONOCYTES % (AUTO) 5.3 % (2.0-12.0); NEUTROPHILS # (AUTO) 13.4 /CMM (1.8-8.9); NEUTROPHILS % (AUTO) 92.4 % (43.0-81.0); PLATELET COUNT (AUTO) 209 /CMM (150-450); RED BLOOD CELL COUNT(AUTO) 4.36 MIL/uL (4.5-6.0); WHITE BLOOD COUNT (AUTO) 14.6 K/uL (4.3-11.0)
[2016-12-31 06:51] LABS: CALCIUM, SERUM 8.9 mg/dL (8.5-10.1); CREATININE 0.8 mg/dL (0.6-1.3); PHOSPHORUS 2.4 mg/dL (2.5-4.9); POTASSIUM 4.6 mmol/L (3.5-5.1)
[2016-12-31 08:00] VITALS: BP 187/99
[2016-12-31] MEDS: LORAZEPAM INJ 2 MG/ML VIAL IV SCH ×2 (08:30→16:19)
[2016-12-31] MEDS: PANTOPRAZOLE 40 MG VIAL IV SCH (08:30)
[2016-12-31] MEDS: methylPREDNISolone SOD SUCC 125 MG/2ML VIAL IV SCH ×2 (08:30→16:19)
[2016-12-31] MEDS: NYSTATIN (PYXIS) 500,000 UNIT/5 ML ORAL.SUSP PO SCH ×3 (08:30→16:19)
[2016-12-31] MEDS: hydrALAZINE HCL IV 20 MG VIAL IV PRN (08:31)
[2016-12-31] MEDS: VANCOMYCIN HCL 0.75 GM in IV D5W 250 ML IV SCH ×2 (08:32→21:48)
[2016-12-31] MEDS: HYDROGEL DRESSING 90 GM TUBE TP SCH (08:32)
[2016-12-31] MEDS: ENOXAPARIN SODIUM 40 MG/0.4 ML DISP.SYRIN SQ SCH (09:38)
[2016-12-31] MEDS: Magnesium 1GM/D5W 100ML PREMIX 100 ML IV SCH ×2 (10:27→11:29)
[2016-12-31 12:00] VITALS: BP 152/71
[2016-12-31] MEDS: ACETAMINOPHEN 325 MG TABLET PO PRN (13:31)
[2016-12-31] MEDS: LORAZEPAM INJ 2 MG/ML VIAL IV PRN ×2 (13:43→23:14)
[2016-12-31 16:00] VITALS: BP 120/70
[2016-12-31] MEDS ORDERED: NEUTRA PHOS 1 POWD.PACKET GT ONE (16:00)
[2016-12-31] MEDS: GLYTROL 1,000 ML BAG GT PRN (18:21)
[2016-12-31 20:00] VITALS: BP 150/77
[2017-01-01] VITALS: BP 127/79
[2017-01-01] MEDS: BLOOD SUGAR DIAGNOSTIC 1 EACH STRIP IN SCH ×4 (00:27→17:50)
[2017-01-01] MEDS: INSULIN REGULAR, HUMAN 100 UNIT/ML 3 ML VIAL SQ PRN ×3 (00:30→17:04)
[2017-01-01] MEDS: IPRATROPIUM NEB FS 0.5 MG/2.5 ML AMPUL.NEB NEB SCH ×4 (03:13→19:33)
[2017-01-01] MEDS: ALBUTEROL HALF STRENGTH 1.25 MG/3 ML VIAL.NEB NEB SCH ×4 (03:19→19:34)
[2017-01-01] MEDS: LORAZEPAM INJ 2 MG/ML VIAL IV PRN ×2 (03:50→23:01)
[2017-01-01 04:00] VITALS: BP 151/76
[2017-01-01] MEDS ORDERED: IV NS 0.9% 250 ML IV ONE ×2 (05:48→20:26)
[2017-01-01] MEDS: MORPHINE SULFATE INJ 2 MG/ML DISP.SYRIN IV PRN (06:34)
[2017-01-01 06:56] LABS: CALCIUM, SERUM 8.6 mg/dL (8.5-10.1); CREATININE 0.8 mg/dL (0.6-1.3); PHOSPHORUS 2.5 mg/dL (2.5-4.9); POTASSIUM 4.8 mmol/L (3.5-5.1)
[2017-01-01 07:58] LABS: DIFF TOTAL % 100 %; HEMATOCRIT 40 % (39-51); HEMOGLOBIN 13.1 g/dL (13.5-17.5); LYMPHOCYTES # (AUTO) 0.3 /CMM (0.8-4.8); MEAN CORPUSCULAR HEMOGLOBIN 33 PG (26.0-33.0); MEAN CORPUSCULAR HGB CONC 33 g/dl (31.0-36.0); MEAN CORPUSCULAR VOLUME 99 fL (80-96); MONOCYTES # (AUTO) 0.5 /CMM (0.1-1.30); MONOCYTES % (AUTO) 5.4 % (2.0-12.0); NEUTROPHILS # (AUTO) 8.1 /CMM (1.8-8.9); NEUTROPHILS % (AUTO) 91.6 % (43.0-81.0); PLATELET COUNT (AUTO) 182 /CMM (150-450); RED BLOOD CELL COUNT(AUTO) 3.98 MIL/uL (4.5-6.0); WHITE BLOOD COUNT (AUTO) 8.9 K/uL (4.3-11.0)
[2017-01-01 08:00] VITALS: BP 130/77
[2017-01-01] MEDS: LORAZEPAM INJ 2 MG/ML VIAL IV SCH ×2 (08:19→16:30)
[2017-01-01] MEDS: methylPREDNISolone SOD SUCC 125 MG/2ML VIAL IV SCH ×2 (08:19→16:30)
[2017-01-01] MEDS: GLYTROL 1,000 ML BAG GT PRN (08:19)
[2017-01-01] MEDS: HYDROGEL DRESSING 90 GM TUBE TP SCH (08:20)
[2017-01-01] MEDS: PANTOPRAZOLE 40 MG VIAL IV SCH (08:20)
[2017-01-01] MEDS: NYSTATIN (PYXIS) 500,000 UNIT/5 ML ORAL.SUSP PO SCH ×3 (08:20→16:30)
[2017-01-01] MEDS: Z GUARD REMEDY 2 OZ OINT TP PRN (08:20)
[2017-01-01] MEDS: ENOXAPARIN SODIUM 40 MG/0.4 ML DISP.SYRIN SQ SCH (08:20)
[2017-01-01] MEDS: VANCOMYCIN HCL 0.75 GM in IV D5W 250 ML IV SCH ×2 (08:33→20:26)
[2017-01-01] MEDS ORDERED: SECONDARY IV SET 1 EA INFUS.SET MC ONE (08:39)
[2017-01-01 12:00] VITALS: BP 108/61
[2017-01-01] MEDS: Magnesium 1GM/D5W 100ML PREMIX 100 ML IV SCH ×2 (13:03→14:55)
[2017-01-01] MEDS: ACETAMINOPHEN 325 MG TABLET PO PRN (13:03)
[2017-01-01 16:00] VITALS: BP 144/73
[2017-01-01 20:00] VITALS: BP 156/78
[2017-01-02] VITALS (7 sets, daily range): BP systolic 142–185; BP diastolic 70–85
[2017-01-02] MEDS: BLOOD SUGAR DIAGNOSTIC 1 EACH STRIP IN SCH ×4 (00:04→17:14)
[2017-01-02] MEDS: INSULIN REGULAR, HUMAN 100 UNIT/ML 3 ML VIAL SQ PRN ×2 (00:05→17:16)
[2017-01-02] MEDS: hydrALAZINE HCL 25 MG TABLET PO PRN (00:21)
[2017-01-02] MEDS ORDERED: IPRATROPIUM NEB FS 0.5 MG/2.5 ML AMPUL.NEB ONE (01:13)
[2017-01-02] MEDS: IPRATROPIUM NEB FS 0.5 MG/2.5 ML AMPUL.NEB NEB SCH ×4 (01:32→20:11)
[2017-01-02] MEDS: ALBUTEROL HALF STRENGTH 1.25 MG/3 ML VIAL.NEB NEB SCH ×4 (01:32→20:11)
[2017-01-02] MEDS: MORPHINE SULFATE INJ 2 MG/ML DISP.SYRIN IV PRN ×2 (02:32→23:14)
[2017-01-02] MEDS: GLYTROL 1,000 ML BAG GT PRN ×2 (05:21→23:14)
[2017-01-02] MEDS: LORAZEPAM INJ 2 MG/ML VIAL IV PRN ×4 (05:38→21:58)
[2017-01-02 06:47] LABS: BASOPHILS % (AUTO) 0.2 % (0.0-2.0); DIFF TOTAL % 100 %; HEMATOCRIT 42 % (39-51); HEMOGLOBIN 13.7 g/dL (13.5-17.5); LYMPHOCYTES # (AUTO) 0.4 /CMM (0.8-4.8); LYMPHOCYTES % (AUTO) 4.5 % (20.0-44.0); MEAN CORPUSCULAR HEMOGLOBIN 33 PG (26.0-33.0); MEAN CORPUSCULAR HGB CONC 33 g/dl (31.0-36.0); MEAN CORPUSCULAR VOLUME 100 fL (80-96); MONOCYTES # (AUTO) 0.6 /CMM (0.1-1.30); MONOCYTES % (AUTO) 6.7 % (2.0-12.0); NEUTROPHILS # (AUTO) 7.6 /CMM (1.8-8.9); NEUTROPHILS % (AUTO) 88.6 % (43.0-81.0); PLATELET COUNT (AUTO) 189 /CMM (150-450); RED BLOOD CELL COUNT(AUTO) 4.15 MIL/uL (4.5-6.0); WHITE BLOOD COUNT (AUTO) 8.6 K/uL (4.3-11.0)
[2017-01-02 07:01] LABS: CALCIUM, SERUM 8.6 mg/dL (8.5-10.1); CREATININE 0.9 mg/dL (0.6-1.3); POTASSIUM 4.8 mmol/L (3.5-5.1)
[2017-01-02] MEDS: VANCOMYCIN HCL 0.75 GM in IV D5W 250 ML IV SCH ×2 (09:25→21:02)
[2017-01-02] MEDS: methylPREDNISolone SOD SUCC 125 MG/2ML VIAL IV SCH ×2 (09:28→17:04)
[2017-01-02] MEDS: HYDROGEL DRESSING 90 GM TUBE TP SCH (09:28)
[2017-01-02] MEDS: PANTOPRAZOLE 40 MG VIAL IV SCH (09:28)
[2017-01-02] MEDS: LORAZEPAM INJ 2 MG/ML VIAL IV SCH ×2 (09:28→17:04)
[2017-01-02] MEDS: ENOXAPARIN SODIUM 40 MG/0.4 ML DISP.SYRIN SQ SCH (09:28)
[2017-01-02] MEDS: NYSTATIN (PYXIS) 500,000 UNIT/5 ML ORAL.SUSP PO SCH ×3 (09:28→17:04)
[2017-01-02] MEDS ORDERED: IV NS 0.9% 250 ML IV ONE (22:49)
[2017-01-03] VITALS: BP 175/81
[2017-01-03] MEDS: BLOOD SUGAR DIAGNOSTIC 1 EACH STRIP IN SCH ×4 (00:20→17:21)
[2017-01-03] MEDS: INSULIN REGULAR, HUMAN 100 UNIT/ML 3 ML VIAL SQ PRN ×3 (01:07→17:35)
[2017-01-03] MEDS: LORAZEPAM INJ 2 MG/ML VIAL IV PRN ×2 (01:08→15:31)
[2017-01-03] MEDS: IPRATROPIUM NEB FS 0.5 MG/2.5 ML AMPUL.NEB NEB SCH ×4 (01:57→19:25)
[2017-01-03] MEDS: ALBUTEROL HALF STRENGTH 1.25 MG/3 ML VIAL.NEB NEB SCH ×4 (01:57→19:25)
[2017-01-03] MEDS: hydrALAZINE HCL 25 MG TABLET PO PRN (03:43)
[2017-01-03 04:00] VITALS: BP_SYST 124; BP_SYST 178; BP_DIAS 62; BP_DIAS 83
[2017-01-03 06:34] LABS: DIFF TOTAL % 100 %; HEMATOCRIT 40 % (39-51); HEMOGLOBIN 13.2 g/dL (13.5-17.5); LYMPHOCYTES # (AUTO) 0.1 /CMM (0.8-4.8); LYMPHOCYTES % (AUTO) 1.5 % (20.0-44.0); MEAN CORPUSCULAR HEMOGLOBIN 33 PG (26.0-33.0); MEAN CORPUSCULAR HGB CONC 33 g/dl (31.0-36.0); MEAN CORPUSCULAR VOLUME 99 fL (80-96); MONOCYTES # (AUTO) 0.4 /CMM (0.1-1.30); MONOCYTES % (AUTO) 5.6 % (2.0-12.0); NEUTROPHILS # (AUTO) 7.4 /CMM (1.8-8.9); NEUTROPHILS % (AUTO) 92.9 % (43.0-81.0); PLATELET COUNT (AUTO) 229 /CMM (150-450); RED BLOOD CELL COUNT(AUTO) 4.04 MIL/uL (4.5-6.0)
[2017-01-03 06:51] LABS: CALCIUM, SERUM 8.9 mg/dL (8.5-10.1); CREATININE 0.9 mg/dL (0.6-1.3); POTASSIUM 4.6 mmol/L (3.5-5.1)
[2017-01-03 08:00] VITALS: BP 162/74
[2017-01-03] MEDS: VANCOMYCIN HCL 0.75 GM in IV D5W 250 ML IV SCH ×2 (08:13→21:00)
[2017-01-03] MEDS: methylPREDNISolone SOD SUCC 125 MG/2ML VIAL IV SCH (08:13)
[2017-01-03] MEDS: LORAZEPAM INJ 2 MG/ML VIAL IV SCH (08:13)
[2017-01-03] MEDS: PANTOPRAZOLE 40 MG VIAL IV SCH (08:13)
[2017-01-03] MEDS: NYSTATIN (PYXIS) 500,000 UNIT/5 ML ORAL.SUSP PO SCH ×3 (08:14→16:23)
[2017-01-03] MEDS: HYDROGEL DRESSING 90 GM TUBE TP SCH (08:14)
[2017-01-03] MEDS: ENOXAPARIN SODIUM 40 MG/0.4 ML DISP.SYRIN SQ SCH (08:32)
[2017-01-03 12:00] VITALS: BP 171/96
[2017-01-03 16:00] VITALS: BP 147/80
[2017-01-03 16:09] LABS: ABG BASE EXCESS 10.9 mmol/L; ABG HCO3 37.4 mmol/L; ABG PCO2 57.1 mmHg (35.0-45.0); ABG PH 7.434 (7.350-7.450); ABG PO2 82.9 mmHg (75.0-100.0); ABG TOTAL HEMOGLOBIN 13.6 G/dL (13.5-18.0); ALLEN TEST Pass; AaDO2 136.6 mmHg; O2Hb 94.1 % (94.0-97.0)
[2017-01-03] MEDS: GLYTROL 1,000 ML BAG GT PRN (17:21)
[2017-01-03] MEDS: MORPHINE SULFATE INJ 2 MG/ML DISP.SYRIN IV PRN (17:22)
[2017-01-03] MEDS: ALPRAZOLAM 0.25 MG TABLET PO PRN (17:36)
[2017-01-03 20:00] VITALS: BP 151/71
[2017-01-04] VITALS: BP 155/77
[2017-01-04] MEDS: ALBUTEROL HALF STRENGTH 1.25 MG/3 ML VIAL.NEB NEB SCH ×3 (01:20→12:39)
[2017-01-04] MEDS: IPRATROPIUM NEB FS 0.5 MG/2.5 ML AMPUL.NEB NEB SCH ×3 (01:20→12:39)
[2017-01-04] MEDS: BLOOD SUGAR DIAGNOSTIC 1 EACH STRIP IN SCH ×4 (01:26→17:34)
[2017-01-04] MEDS: INSULIN REGULAR, HUMAN 100 UNIT/ML 3 ML VIAL SQ PRN ×3 (01:27→17:37)
[2017-01-04] MEDS: MORPHINE SULFATE INJ 2 MG/ML DISP.SYRIN IV PRN (01:30)
[2017-01-04] MEDS: ALPRAZOLAM 0.25 MG TABLET PO PRN ×2 (02:41→14:39)
[2017-01-04 04:00] VITALS: BP 153/73
[2017-01-04] MEDS ORDERED: IV NS 0.9% 250 ML IV ONE (05:32)
[2017-01-04 06:30] LABS: CALCIUM, SERUM 8.9 mg/dL (8.5-10.1); CREATININE 0.8 mg/dL (0.6-1.3); POTASSIUM 4.2 mmol/L (3.5-5.1)
[2017-01-04 08:00] VITALS: BP 132/71
[2017-01-04] MEDS: VANCOMYCIN HCL 0.75 GM in IV D5W 250 ML IV SCH (08:38)
[2017-01-04] MEDS: PANTOPRAZOLE 40 MG VIAL IV SCH (08:39)
[2017-01-04] MEDS: ENOXAPARIN SODIUM 40 MG/0.4 ML DISP.SYRIN SQ SCH (08:40)
[2017-01-04] MEDS: HYDROGEL DRESSING 90 GM TUBE TP SCH (08:46)
[2017-01-04] MEDS: NYSTATIN (PYXIS) 500,000 UNIT/5 ML ORAL.SUSP GT SCH ×3 (08:48→17:43)
[2017-01-04] MEDS ORDERED: methylPREDNISolone SOD SUCC 125 MG/2ML VIAL IV SCH (09:00)
[2017-01-04] MEDS ORDERED: predniSONE 20 MG TABLET PO SCH (09:00)
[2017-01-04 12:00] VITALS: BP 112/58
[2017-01-04] MEDS: GLYTROL 1,000 ML BAG GT PRN (14:45)
[2017-01-04 15:07] LABS: ABG BASE EXCESS 10.2 mmol/L; ABG PCO2 52.3 mmHg (35.0-45.0); ABG PH 7.456 (7.350-7.450); ALLEN TEST Pass; AaDO2 152.1 mmHg; O2Hb 92.6 % (94.0-97.0)
[2017-01-04 16:00] VITALS: BP 139/68
== END 2017-01-04 20:00 | disposition short-term general hospital (02) | DRG 4 ==
LOC: ER 06:47 → ICU 08:51 → TELE1 12-29 16:51 → TELE-TD 12-30 05:18 → TELE1 01-01 14:16
PROVIDERS: ADMIT Family Medicine; ATTEND Family Medicine
PROC: 0BH17EZ Insertion of Endotracheal Airway into Trachea, Via Natural or Artificial Opening (ICD-10-PCS; principal; 2016-12-12)
PROC: 5A1955Z Respiratory Ventilation, Greater than 96 Consecutive Hours (ICD-10-PCS; 2016-12-12)
PROC: 05H633Z Insertion of Infusion Device into Left Subclavian Vein, Percutaneous Approach (ICD-10-PCS; 2016-12-14)
PROC: 0B110F4 Bypass Trachea to Cutaneous with Tracheostomy Device, Open Approach (ICD-10-PCS; 2016-12-27)
PROC: 0DH63UZ Insertion of Feeding Device into Stomach, Percutaneous Approach (ICD-10-PCS; 2016-12-27)
DX: J96.22 Acute and chronic respiratory failure with hypercapnia (principal); I21.4 Non-ST elevation (NSTEMI) myocardial infarction; N17.0 Acute kidney failure with tubular necrosis; J15.212 Pneumonia due to Methicillin resistant Staphylococcus aureus; G93.41 Metabolic encephalopathy; R65.20 Severe sepsis without septic shock; J44.1 Chronic obstructive pulmonary disease with (acute) exacerbation; J44.0 Chronic obstructive pulmonary disease with (acute) lower respiratory infection; Z99.11 Dependence on respirator [ventilator] status; D68.59 Other primary thrombophilia; E87.0 Hyperosmolality and hypernatremia; E87.2 Acidosis; J90 Pleural effusion, not elsewhere classified; J98.11 Atelectasis; E87.5 Hyperkalemia; M41.9 Scoliosis, unspecified; G89.29 Other chronic pain; F17.210 Nicotine dependence, cigarettes, uncomplicated; B95.5 Unspecified streptococcus as the cause of diseases classified elsewhere; E86.0 Dehydration; F41.9 Anxiety disorder, unspecified; L89.621 Pressure ulcer of left heel, stage 1; L89.611 Pressure ulcer of right heel, stage 1; I70.25 Atherosclerosis of native arteries of other extremities with ulceration; M54.5 Low back pain; Z93.0 Tracheostomy status; J96.21 Acute and chronic respiratory failure with hypoxia; I48.0 Paroxysmal atrial fibrillation; R91.1 Solitary pulmonary nodule; L89.91 Pressure ulcer of unspecified site, stage 1; E83.39 Other disorders of phosphorus metabolism; E83.42 Hypomagnesemia; F32.9 Major depressive disorder, single episode, unspecified; I10 Essential (primary) hypertension; I25.2 Old myocardial infarction; I70.0 Atherosclerosis of aorta; I70.203 Unspecified atherosclerosis of native arteries of extremities, bilateral legs; J45.909 Unspecified asthma, uncomplicated; Z99.81 Dependence on supplemental oxygen
CPT/HCPCS: 31720; 36415; 36600; 43246; 70450-TC; 71010-TC; 74000-TC; 76770-TC; 80048-TC; 80053-TC; 80061-TC; 80076-TC; 80202-TC; 81000-TC; 82570-TC; 82803-TC; 82962-TC; 83605-TC; 83735-TC; 83880; 84100-TC; 84300-TC; 84478-TC; 84484-TC; 85025-TC; 85610-TC; 85730-TC; 86592; 86850-TC; 87040-TC; 87070-TC; 87081-TC; 87086-TC; 87400; 87536; 93307-TC; 94002-TC; 94003-TC; 94760-TC; 94799-TC; 99082-TC; A4216; A4606; A6248; A6402; A6403; A7526; A9563; C9113; J0282; J0330; J0360; J1650; J1815; J1956; J2060; J2270; J2310; J2543; J2930; J3010; J3105; J3370; J3475; J3490; J7030; J7050; J7060; Z7610